=== PATIENT | male | born 1955 | race Caucasian/White ===

== ENCOUNTER 2024-02-13 20:06 | Inpatient (IN) | payer BC, SELFPAY ==
[2024-02-13] VITALS (11 sets, daily range): BP systolic 148–180; BP diastolic 74–110; BMI 36.6
--- NOTE | 2024-02-13 12:05 | ED.GENMED ---
ED Provider Triage
<Payton Fowler PA-C - Last Filed: 02/13/24 16:15>
-
Patient seen by provider in Triage?: Seen in Triage
Attestation: A medical screening examination has been initiated by a qualified medical provider. Based on the assessment performed at this time, it has been determined that an emergent medical condition may exist and the patient has been informed
that further medical evaluation and possible additional diagnostic testing may be needed.
HPI: 68yoM here with lightheadedness x 2 days. BP was high since yesterday. 210 systolic yesterday. Took 4 doses of clonidine 0.3mg this morning. Also having slight chest pain. Denies vertigo.
GENERAL: Alert , in no apparent distress
EYE: No visual abnormalities.
NECK: Trachea midline
ENT: No visible abnormalities.
LUNGS: No acute respiratory distress
NEUROLOGICAL: Alert and oriented
SKIN: Skin intact. No visible changes.
MUSCULOSKELETAL: Moving extremities normally
PSYCH: Normal and appropriate interaction.
This is a medical evaluation conducted in person to initiate diagnostic evaluation and provide initial therapeutics. Please see further documentation by the treating clinician.
Cardiac labs and EKG ordered.
History of Present Illness
<Payton Fowler PA-C - Last Filed: 02/13/24 16:15>
General
Chief Complaint: Fainting Sensation
Time Seen by Provider: 02/13/24 13:10
<AIDA Otoole - Last Filed: 02/13/24 20:56>
General
Source: patient
Exam Limitations: none
Nursing documentation reviewed up to this point in time: agreed with
History of Present Illness
History of Present Illness:
68-year-old male presents to the ER for evaluation of lightheadedness. Patient reports for the past week he has felt intermittently lightheaded not associate with position changes or exertion. He denies any actual headache. He denies any chest
pain shortness of breath nausea vomiting. He did take his blood pressure yesterday it was very high. He does have a history of high blood pressure reports he was on multiple blood pressure medications none of which worked and he is presently being
treated only with clonidine.
He denies any trauma. Denies any vertigo denies any room spinning sensation.
He denies any recent illness fever chills.
Past History
<Payton Fowler PA-C - Last Filed: 02/13/24 16:15>
Past History
ED Past Medical History: HTN and Other (Hepatitis C)
ED Past Surgical History: Other (Surgical resection of adrenal tumor)
Social History
Drug: Former user
Personal:
Review of Systems
<AIDA Otoole - Last Filed: 02/13/24 20:56>
Review of Systems
Allergies reviewed?: Yes
All Other Systems: ROS reviewed and negative except as documented in HPI and ROS
Constitutional: Reports no symptoms; Denies fever, fatigue or chills
EENT: Reports no symptoms
Respiratory: Reports no symptoms
Cardiac: Reports no symptoms
ABD/GI: Reports no symptoms
Musculoskeletal: Reports no symptoms
Skin: Reports no symptoms
Neurological: Reports other (lightheadedness ); Denies headache
Psychiatric: Reports no symptoms
Phy Exam
<AIDA Otoole - Last Filed: 02/13/24 20:56>
General Physical Exam
General Presentation: no apparent distress
General age: appears stated age
General Skin: warm and dry
General Habitus: normal
General Mental: alert
General Hydration: appears well hydrated
Cardiovascular Exam
Cardiovascular Exam: regular rate/rhythm, no murmur and normal peripheral pulses
Pulmonary Exam
Pulmonary Exam: lungs clear and no respiratory distress
Neurological Exam
Neurological Exam: alert, oriented x3, no motor deficits, no sensory deficits and speech normal
NIH Stroke Score
Level of Consciousness: 0 - Alert
LOC questions: 0-Answers both correctly
LOC Commands: 0-Performs both correctly
Best Gaze: 0-Normal
Visual [place]: 0=Normal, no visual loss
Facial palsy: 0=Normal, symmetrical
Motor - Right Arm: 0=No drift 10 seconds
Motor - Left Arm: 0=No drift 10 seconds
Motor - Right Le-No drift 5 seconds
Motor - Left Le-No drift 5 seconds
Limb Ataxia: 0-Absent
Sensation: 0-Normal
Best Language: 0-No aphasia
Dysarthria: 0-Normal
Extinction and Inattention: 0-No abnormality
Total Score:: 0
[place] Coma Scale
Eye Opening: Spontaneous
Verbal Response: Oriented
Motor Response: Obeys Commands
GCS Total Score: 15
Cerebellar
Cerebellar Function: normal finger to nose
Musculoskeletal Exam
Musculoskeletal Exam: full ROM
Skin Exam
Skin Exam: normal color and warm/dry
Psychiatric Exam
Psychiatric Exam: normal mood/affect
Course
<Payton Fowler PA-C - Last Filed: 02/13/24 16:15>
Orders/Labs/Results
Orders:
Orders
02/13/24 12:07
Electrocardiogram (*1) Urgent
Reason for Study: Vertigo / Dizzy
EKG- Treatment ONCE
02/13/24 12:15
Complete Blood Count/With Diff Urgent
Comprehensive Metabolic Panel Urgent
Magnesium Urgent
Comment: TSHR
TSH Reflex To Free T4 Urgent
Comment: MAG & TSH REFLEX ADDED ON BY FLOOR 2PM 02-13-24
Troponin I Urgent
02/13/24 13:59
Add On- LAB Urgent
Tests Added?: magnesium , tsh with reflexive t4
02/13/24 14:11
CT Head W/o Iv Contrast Urgent
Comment:
Reason For Exam: elevated bp lightheaded
02/13/24 15:13
0.9% Sodium Chloride 1000 ml [Nss] 1,000 ml IV BOLUS
02/13/24 16:35
Aspirin Chewable [Low Strength Aspirin] 324 mg PO NOW STA
02/13/24 16:52
CT Head & Neck Angio W/wo IV Urgent
Comment:
Reason For Exam: dizziness quetionable subacute cva
02/13/24 19:33
Admit/Transfer Patient As Directed
Co-Sign Provider:
Level of Care: Inpatient admission
Assign to:: Telemetry
Physician / Group: Tato Zabala
Diagnosis: CVA
Reason for Telemetry: CVA/TIA
Date to Stop Telemetry: 02/16/24
Time to Stop Telemetry: 11:00
Reason for Hospitalization: CVA
Expected length of stay greater than two midnights?: Yes
ELOS- Estimated Length of Stay in days: 3
I certify the patient meets the requirements for IP care: Yes
PRN Pain Medication Management As Directed
May give lesser potent ordered pain med per pt: Yes
preference::
Protocol:: Medication orders for pain may be administered in a
manner that supports deferring to patient preference
when the pt is:
- Requesting an ordered lesser potent pain medication.
Least to most potent pain medications are defined
as: acetaminophen < NSAID < tramadol < opioids
(morphine, oxycodone, hydromorphone).
- Requesting a lesser dose of the same medication IF
ORDERED.
- Requesting a less intrusive route of administration
if both routes are prescribed by the provider (PO <
IV).
02/13/24 19:35
Code Status As Directed
Resuscitation Status: Full Code
02/16/24 11:00
DC Protocol for Telemetry ONCE
Abnormal Lab Results
02/13/24
12:15
MPV 10.5 H fL
(7.4-10.4)
02/13/24 12:15
02/13/24 12:15
Vital Signs
Initial and Last Documented VS:
Initial Vital Signs
Temp Pulse Resp BP Pulse Ox
98.2 F 52 18 172/110 99
02/13/24 12:02 02/13/24 12:02 02/13/24 12:02 02/13/24 12:02 02/13/24 12:02
Last Documented Vital Signs
Temp Pulse Resp BP Pulse Ox
98.2 F 55 12 162/95 97
02/13/24 12:02 02/13/24 19:09 02/13/24 19:09 02/13/24 18:30 02/13/24 19:09
<AIDA Otoole - Last Filed: 02/13/24 20:56>
Orders/Labs/Results
Orders:
Orders
02/13/24 12:07
Electrocardiogram (*1) Urgent
Reason for Study: Vertigo / Dizzy
EKG- Treatment ONCE
02/13/24 12:15
Complete Blood Count/With Diff Urgent
Comprehensive Metabolic Panel Urgent
Magnesium Urgent
Comment: TSHR
TSH Reflex To Free T4 Urgent
Comment: MAG & TSH REFLEX ADDED ON BY FLOOR 2PM 02-13-24
Troponin I Urgent
02/13/24 13:59
Add On- LAB Urgent
Tests Added?: magnesium , tsh with reflexive t4
02/13/24 14:11
CT Head W/o Iv Contrast Urgent
Comment:
Reason For Exam: elevated bp lightheaded
02/13/24 15:13
0.9% Sodium Chloride 1000 ml [Nss] 1,000 ml IV BOLUS
02/13/24 16:35
Aspirin Chewable [Low Strength Aspirin] 324 mg PO NOW STA
02/13/24 16:52
CT Head & Neck Angio W/wo IV Urgent
Comment:
Reason For Exam: dizziness quetionable subacute cva
02/13/24 19:33
Admit/Transfer Patient As Directed
Co-Sign Provider:
Level of Care: Inpatient admission
Assign to:: Telemetry
Physician / Group: Tato Zabala
Diagnosis: CVA
Reason for Telemetry: CVA/TIA
Date to Stop Telemetry: 02/16/24
Time to Stop Telemetry: 11:00
Reason for Hospitalization: CVA
Expected length of stay greater than two midnights?: Yes
ELOS- Estimated Length of Stay in days: 3
I certify the patient meets the requirements for IP care: Yes
PRN Pain Medication Management As Directed
May give lesser potent ordered pain med per pt: Yes
preference::
Protocol:: Medication orders for pain may be administered in a
manner that supports deferring to patient preference
when the pt is:
- Requesting an ordered lesser potent pain medication.
Least to most potent pain medications are defined
as: acetaminophen < NSAID < tramadol < opioids
(morphine, oxycodone, hydromorphone).
- Requesting a lesser dose of the same medication IF
ORDERED.
- Requesting a less intrusive route of administration
if both routes are prescribed by the provider (PO <
IV).
02/13/24 19:35
Code Status As Directed
Resuscitation Status: Full Code
02/16/24 11:00
DC Protocol for Telemetry ONCE
Abnormal Lab Results
02/13/24
12:15
MPV 10.5 H fL
(7.4-10.4)
02/13/24 12:15
02/13/24 12:15
Vital Signs
Initial and Last Documented VS:
Initial Vital Signs
Temp Pulse Resp BP Pulse Ox
98.2 F 52 18 172/110 99
02/13/24 12:02 02/13/24 12:02 02/13/24 12:02 02/13/24 12:02 02/13/24 12:02
Last Documented Vital Signs
Temp Pulse Resp BP Pulse Ox
98.2 F 55 12 162/95 97
02/13/24 12:02 02/13/24 19:09 02/13/24 19:09 02/13/24 18:30 02/13/24 19:09
Piano Instructor consulted with Physician
Piano Instructor consulted with physician?: Yes
Name of Physician Consulted: hatif
<AIDA Otoole - Last Filed: 02/13/24 20:56>
MDM/Problems Addressed
Differential Diagnosis Includes:
Not limited to lightheadedness, arrhythmia, dehydration, anemia
MDM/Problems Addressed:
Patient is a 68-year-old male with history of hypertension presents to the ER for evaluation of lightheadedness for the past week. Patient has no other neurological deficits but feels lightheaded not associate position change. No neurological
deficits on exam CAT scan does show possible subacute CVA in the parietal lobe. Case discussed with neurology recommend CT angio head and neck. Neurology does recommend aspirin. In addition patient denies any chest pain shortness of breath
however he has had frequent PVCs on the monitor. Patient has longstanding history of hypertension has seen several shutdown planner not in this area to manage this in the past but he reports no medicine ever worked and therefore he is only on clonidine.
As discussed with neurology will admit to the hospital service
Chronic conditions affecting care:
htn only treated with clonidine
<AIDA Otoole - Last Filed: 02/13/24 20:56>
*Radiology
Radiology exam reviewed: radiology read reviewed (Report for CT head and CTA head and neck reviewed)
*Pulse Oximetry
Patient hypoxic: no
*EKG
Interpreted by ED Provider?: Yes
Heart Rate: 56
Rate: bradycardiac
Rhythm: sinus and PVC's
*Critical Care Note
Total Time (30-74mins, 75-104mins- exclusive of procedures): Not Applicable
<AIDA Otoole - Last Filed: 02/13/24 20:56>
Patient Management
Discussion with other providers: Checking Department Supervisor (neuro Dr Zac Joiner )
ED Attending Note
<Payton Fowler PA-C - Last Filed: 02/13/24 16:15>
-
Portions of this chart may have been created with voice recognition software.� Occasional wrong word or��sound alike� substitutions may have occurred due to the inherent limitations of voice recognition software.
Discharge Plan
Departure
Patient Disposition: Admit
Date of Disposition: 02/13/24
Time of Disposition: 18:36
Admit to: Telemetry
Admit to doctor: [email or web address]
Presentation/result/management discussed w/ accepting MD/DO: Hospitalist
Patient with high blood pressure during this ER visit?: Yes
Condition: Fair
Covid-19: Not Applicable
Discharge Problem:
Lightheadedness, Possible cva , PAC (premature atrial contraction)
Interventions
Interventions:
*Risk Screen - Suicide Last Done: 02/13/24 12:02
*General Assessment Last Done: 02/13/24 12:02
*Neglect/Abuse Screening Last Done: 02/13/24 12:02
*ED COVID-19 Vaccine History Last Done: 02/13/24 12:02
ED- Neurological Assessment Last Done: 02/13/24 15:00
ED- Cardiac Assessment Last Done: 02/13/24 15:00
[2024-02-13 12:32] LABS: % Basophils 0.5 % (0-2); % Eosinophils 1.5 % (0-6); % Immature Granulocytes 0.3 % (0-0.5); % Lymphocytes 26.7 % (20.5-51.1); % Monocytes 7.5 % (1.7-9.3); % Neutrophils 63.5 % (42.2-75.2); Absolute Eosinophils 0.1 10^3/uL (0-0.7); Absolute Lymphocytes 1.8 10^3/uL (1.2-3.4); Absolute Monocytes 0.5 10^3/uL (0.1-0.6); Absolute Neutrophils 4.2 10^3/uL (1.4-6.5); Hemoglobin 15.5 g/dL (13.0-18.0); Mean Corp Hgb Conc. 34.4 g/dL (33.0-37.0); Mean Corpuscular Volume 84.3 fL (80.0-94.0); Mean Platelet Volume 10.5 fL (7.4-10.4); Nucleated Red Blood Cells % 0 % (-); Platelet Count 204 10^3/uL (130-400); Red Blood Cell Count 5.34 10^6/uL (4.70-6.10); Red Cell Dist. Width 13.2 % (11.5-14.5); White Blood Cell Count 6.6 10^3/uL (4.8-10.8)
[2024-02-13 12:49] LABS: Troponin I < 0.012 ng/ml
[2024-02-13 12:52] LABS: ALT (SGPT) 21 U/L (0-50); AST (SGOT) 25 U/L (17-59); Albumin 4.3 g/dl (3.5-5.0); Alkaline Phosphatase 57 U/L (38-126); Blood Urea Nitrogen 14 mg/dl (9-20); Calcium 9.5 mg/dl (8.4-10.2); Carbon Dioxide 30 mmol/L (22-30); Chloride 103 mmol/L (98-107); Glucose 79 mg/dl (70-99); Potassium 4.6 mmol/L (3.5-5.1); Sodium 142 mmol/L (135-145); Total Bilirubin 0.6 mg/dl (0.2-1.3); eGFR > 60.00
[2024-02-13 15:08] LABS: TSH Reflex To Free T4 2.16 uIU/ml (0.47-4.68)
[2024-02-13] MEDS: NSS 1000 IV (15:58)
[2024-02-13] MEDS: LOW STRENGTH ASPIRIN 324 MG PO (17:01)
--- NOTE | 2024-02-13 19:39 | HPS.HSE ---
Family Physician
-
Family Physician: Kimberly Story
Chief Complaint
-
lightheadedness
History of Present Illness
HPI
68M HTN, Hep C seen at ER for evaluation of lightheadedness.
- onset of intermittently lightheaded not associate with position changes or exertion.
- no headache, no chest pain, no shortness of breath
- HX MDR HTN , currently on h clonidine.
He denies any trauma. Denies any vertigo denies any room spinning sensation.
He denies any recent illness fever chills.
Medical History
Past Medical History
Past Medical History: Reports HTN
Past Surgical History: Reports Other (Surgical resection of adrenal tumor)
Social History
Tobacco: Non-smoker
Alcohol: None
Drug: Former User
Personal:
Family History
Family History: Not pertinent
Allergies / Home Medications
Allergies reflects when Allergies were last updated in [employer].
Home Medications with original date entered in [employer]
Allergy/Medication List:
Allergies
Allergy/AdvReac Type Severity Reaction Status Date / Time
No Known Allergies Allergy Verified 07/29/19 20:39
Home Medications
clonidine HCl 0.3 mg tablet 0.3 mg PO .3-4X DAILY 02/13/24
sildenafil 100 mg tablet 100 mg PO DAILYPRN PRN ed 02/13/24
therapeutic multivitamin 1 tab PO DAILY 02/13/24
Review of Systems
-
Constitutional: Reports No Symptoms
EENT: Reports No Symptoms
Respiratory: Reports No Symptoms
Cardiac: Reports No Symptoms
Abdomen/GI: Reports No Symptoms
: Reports No Symptoms
Musculoskeletal: Reports No Symptoms
Skin: Reports No Symptoms
Neurological: Reports Dizzy (ligheaded )
Endocrine: Reports No Symptoms
Hematologic/Lymphatic: Reports No Symptoms
Psych: Reports No Symptoms
Physical Exam
Vital Signs
Vital Signs
Temp Pulse Resp BP Pulse Ox
98.2 F 55 12 162/95 97
02/13/24 12:02 02/13/24 19:09 02/13/24 19:09 02/13/24 18:30 02/13/24 19:09
Physical Exam
General: Well Developed, Well Nourished and No Apparent Distress
HEENT: NormoCephalic, Moist mucous membranes and Atraumatic
Respiratory: Clear
Cardiac: S1/S2 and Regular Rhythm; No Murmur or Rub
GI: Soft, Non Tender, Non Distended and Normal Bowel Sounds; No Organomegaly
Rectal: Deferred by Provider
Musculoskeletal: No Clubbing, No Cyanosis and No Edema
Skin: No Rash
Neuro: Nonfocal/grossly intact
Laboratory Results
-
02/13/24 12:15
02/13/24 12:15
Laboratory Results
Total Bilirubin 0.6 mg/dl (0.2-1.3) 02/13/24 12:15
AST 25 U/L (17-59) 02/13/24 12:15
ALT 21 U/L (0-50) 02/13/24 12:15
Alkaline Phosphatase 57 U/L (38-126) 02/13/24 12:15
Troponin I < 0.012 ng/ml 02/13/24 12:15
Data Reviewed
-
CT Scan: Report Reviewed by me
Medical Tests (Nuc Med, Echo, EKG etc): Report Reviewed by me
Lab Data: Labs Reviewed by me
Impression/Plan
-
Vital Signs
Temp Pulse Resp BP Pulse Ox
98.2 F 55 12 162/95 97
02/13/24 12:02 02/13/24 19:09 02/13/24 19:09 02/13/24 18:30 02/13/24 19:09
Data
Unremrkable CBC
Unremarkable CMP
NEG TPNI
EKG
SINUS BRADYCARDIA WITH OCCASIONAL PREMATURE VENTRICULAR COMPLEXES
LEFT AXIS DEVIATION
NONSPECIFIC T WAVE ABNORMALITY
ABNORMAL ECG
WHEN COMPARED WITH ECG OF 29-JUL-2019 20:28,
PREMATURE VENTRICULAR COMPLEXES ARE NOW PRESENT
T WAVE INVERSION NOW EVIDENT IN LATERAL LEADS
HCT:
- Subtle focal region of decreased density within the left posterior paramedian parietal lobe, as described. Finding is most suggestive of an area of infarction. This is most likely an old area of infarction, but could conceivably be subacute. If
any previous imaging examination of the head are available, comparison to those exams would be useful.
H & N CTA
- No acute pathology of the head and neck.
- 50-69% right proximal internal carotid artery stenosis.
- Less than 50% left proximal internal carotid artery stenosis.
- Multilevel degenerative disc disease of the cervical spine.
No prior hospitalist admission:
ASSESSMENT & PLAN
Acute CVA with just lightheadedness; Non focal neuro deficit
POS HCT : Subtle focal region of decreased density within the left posterior paramedian parietal lobe
POS H & N CTA: 50-69% right proximal internal carotid artery stenosis.
- start ASA per ER dw Neuro
- start Atorvastatin 40 mg HS
- ECHO
- Lipids and A1C
- Brain MRI
- Neuro consult
- vascular consult
Essential HTN
- c/w Clonidine but hold if SBP <140 DBP <80
DVT Px: SCD
Code: Full code
IP TLM
--- NOTE | 2024-02-13 21:48 | PTCARENOTE ---
Pt arrived from the ED via wheelchair. Pt ambulated into the room. No complaints of pain, light headedness or dizziness. AAOx3, using bathroom independently. Patient oriented to the room. Plan of care discussed. Call buckley is within reach.
[2024-02-13] MEDS: LIPITOR 40 MG PO (22:11)
[2024-02-13] MEDS: CATAPRES 0.3 MG PO (22:11)
[2024-02-14] VITALS (40 sets, daily range): BP systolic 117–197; BP diastolic 64–119; BMI 36.1
--- NOTE | 2024-02-14 04:05 | DOWNTIME ---
There was a [employer] Downtime on 02/14/2024 from 0100 to 02/14/2024 at 0355. Downtime documentation of patient's care, including medication administrations, has been reconciled in the electronic record per guidelines. Refer to the
patient's paper chart under the miscellaneous tab to see printed paper medication records and downtime forms.
[2024-02-14] MEDS: CATAPRES 0.3 MG PO (04:27)
[2024-02-14 08:42] LABS: INR 1.07
[2024-02-14 08:43] LABS: APTT 34.7 Sec (23.4-35.0)
[2024-02-14 08:47] LABS: Hematocrit 44.7 % (39.0-52.0); Hemoglobin 15.6 g/dL (13.0-18.0); Mean Corp Hgb Conc. 34.9 g/dL (33.0-37.0); Mean Corpuscular Hgb 29.1 pg (27.0-31.0); Mean Corpuscular Volume 83.4 fL (80.0-94.0); Mean Platelet Volume 10.8 fL (7.4-10.4); Platelet Count 187 10^3/uL (130-400); Red Blood Cell Count 5.36 10^6/uL (4.70-6.10); Red Cell Dist. Width 13.2 % (11.5-14.5); White Blood Cell Count 6.1 10^3/uL (4.8-10.8)
[2024-02-14] MEDS: LOW STRENGTH ASPIRIN 81 MG PO (08:52)
[2024-02-14 09:01] LABS: Erythrocyte Sed Rate 11 mm/hour (0-20)
[2024-02-14 09:02] LABS: Troponin I < 0.012 ng/ml
[2024-02-14 09:45] LABS: Blood Urea Nitrogen 13 mg/dl (9-20); Calcium 9.4 mg/dl (8.4-10.2); Carbon Dioxide 26 mmol/L (22-30); Chloride 105 mmol/L (98-107); Estimated Creatinine Clearance 123 ml/min; Glucose 93 mg/dl (70-99); HDL Cholesterol 26 mg/dl; LDL Cholesterol, Calculated 135 mg/dl; Potassium 4.5 mmol/L (3.5-5.1); Sodium 141 mmol/L (135-145); Total Cholesterol 191 mg/dl (50-199); Triglyceride 151 mg/dl (10-149); Very Low Density Lipoprotein 30 mg/dl (0-30); eGFR > 60.00
--- NOTE | 2024-02-14 10:11 | CON.NEURO4 ---
Documented by User: Misyt Reaves NP 02/14/24 12:26
Consultation - Neurology 4
-
CONSULTING PHYSICIAN: Zac Joiner MD
REFERRING PHYSICIAN: Hospitalists/AIDA Tejeda
DICTATED BY: AIDA Robin
DATE/TIME OF REQUEST: 02/13/24
DATE/TIME OF CONSULTATION: 02/14/24
Reason for Consultation: Dizziness
History of Present Illness:
This is a 68-year-old right-handed male who has presented to the hospital on 02/13/24 with report of lightheadedness and high blood pressure readings. Patient reports that he was camping over the weekend and felt in his usual state. Two days ago on
02/12/24 he was at work in the morning when he started to feel lightheaded. He also notes that he was working on his computer and noticed a shadow coming and going in his bilateral R delacruz of vision. He checked his blood pressure and reports it was
elevated around 210/100, which he felt was unusual because he typically has a headache when his blood pressure is elevated and he did not have one. That evening he reports feeling better. He then woke up yesterday morning and notes that he once
again felt lightheaded and when he check his bp it was over 200/100 again. He took 4 clonidine with no improvement, then presented to the ER for evaluation. CT head was obtained in the ER and is suggestive of a subacute vs old left parietal infarct.
CTA head/neck was also obtained and is negative for LVO, but demonstrates R ICA 50-69% stenosis. Patient denies any history of TIA, stroke, or vision abnormalities in the past. He notes an extensive history of HTN starting around 2000. He was
diagnosed with an adrenal tumor which he had resected at [facility] in 2005, and notes that his blood pressure improved following surgery. He takes 0.3mg clonidine 3-4 times a day and denies missing any doses. He checks his blood pressure routinely and
notes that until two days ago it was well-controlled. He denies any headache, amaurosis, speech/swallow difficulty, numbness, weakness, nausea, chest pain, palpitations, and shortness of breath. He still endorses a constant light-headed sensation at
rest, that intensifies when he stands/ambulates. He was not taking any blood-thinning medications.
Past Medical History: HTN, hepatitis C, left eye strabismus diagnosed age 8
Surgical History: Surgical resection of adrenal tumor, B/L TKR
Family History: Mother- cavernous malformation, ICH x3.
Social History: Former smoker. Occasional alcohol. 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
Allergies: No known allergies.
Home Medications: See below.
Review of Symptoms:
Patient denies any fever, headache, chest pain, shortness of breath, GI or symptoms.
�Per the HPI.�All systems are reviewed negative except above.
Physical Exam:
The patient is afebrile, abdomen is nondistended, breathing is unlabored, skin is warm and dry, no edema.
NIH Stroke Scale:
I performed the NIH stroke scale on the patient on 02/14/24 at 1030. The patient scored 1 points on the NIH stroke scale assessment, which were assigned as follows: See below.
Neurologic Examination:
The patient is awake, alert and oriented x 3. He is able to follow commands and answer questions appropriately. There is no aphasia or dysarthria. On cranial nerve assessment, pupils are 3 mm bilateral, round and reactive to light and
accommodation. There is a bilateral RLQ field cut. Extraocular movements are intact. Facial sensations are intact and bilaterally symmetrical, there is no facial asymmetry. Hearing is intact bilaterally to normal conversation volume. Tongue palate
and uvula are midline. Sternocleidomastoid strengths are full bilaterally. Motor strengths are 5/5 bilateral upper and lower extremities on [employer] scale. There is no drift or involuntary movement noted. Babinski is absent
bilaterally. Sensation of temperature are moderately reduced in distal BLE. There was no extinction noted on double simultaneous stimulation. Coordination is intact by finger to nose bilaterally.
Lab Results: See below.
Neuro Imaging:
1. CT Head 02/13/24: Subtle focal region of decreased density within the left posterior paramedian parietal lobe, as described. Finding is most suggestive of an area of infarction. This is most likely an old area of infarction, but could conceivably
be subacute. If any previous imaging examination of the head are available, comparison to those exams would be useful.
2. CTA Head/Neck 02/13/24: No acute pathology of the head and neck. 50-69% right proximal internal carotid artery stenosis. Less than 50% left proximal internal carotid artery stenosis. Multilevel degenerative disc disease of the cervical spine.
Differentials for the patient's presentation include:
1. CT head suggestive of a left parietal lobe ischemic infarct, subacute vs chronic. Patient notes R sided visual change starting two days ago, supportive of subacute ischemic stroke.
2. R ICA 50-69% stenosis, appears to be asymptomatic.
Patient has the following risk factors for their symptoms: HTN, HLD
IV Tenecteplase/IAT candidacy: Patient is not a candidate for TNK/IAT due to being outside of time window, stroke already visualized on CT head imaging, no LVO.
Recommendations:
-Continue aspirin 81mg daily indefinitely.
-Slow lowering of blood pressure to goal normotension.
-MRI brain noncontrast pending. Lorazepam 1mg IV x1 on-call for MRI due to severe claustrophobia.
-TTE pending.
-LDL goal <70. LDL is 135. Continue newly initiated atorvastatin 40mg daily.
-Goal normoglycemia, hbA1c is 5.1.
-NIHSS and neurological checks per unit guidelines.
-Provide patient with a stroke education packet.
-PT/OT evaluations.
-DVT prophylaxis.
-Vascular surgery evaluation for R ICA stenosis.
-No driving. Patient needs outpatient visual field testing/clearance by ophthalmology for driving clearance.
-Follow-up with Neurology as an outpatient in 3-4 weeks, may see the [facility]ICE SPECIALIST or one of the physicians.
Discussed patient care with: Dr. Joiner, the patient
Vital Signs and Labs
-
Vital Signs and Labs:
Vital Signs
Temp Pulse Resp BP Pulse Ox
98.4 F 56 18 205/123 96
02/14/24 08:05 02/14/24 08:05 02/14/24 08:05 02/14/24 10:19 02/14/24 08:05
Lab Results
02/14/24 08:19
02/14/24 08:19
PT 14.0 Sec (11.4-14.6) 02/14/24 08:19
INR 1.07 02/14/24 08:19
APTT 34.7 Sec (23.4-35.0) 02/14/24 08:19
Sodium 141 mmol/L (135-145) 02/14/24 08:19
Potassium 4.5 mmol/L (3.5-5.1) 02/14/24 08:19
BUN 13 mg/dl (9-20) 02/14/24 08:19
Glucose 93 mg/dl (70-99) 02/14/24 08:19
Calcium 9.4 mg/dl (8.4-10.2) 02/14/24 08:19
LDL Cholesterol, Calc 135 mg/dl 02/14/24 08:19
Medications
-
Active Medications
Generic Name Dose Route Start Last Admin
Trade Name Freq PRN Reason Stop Dose Admin
Acetaminophen 650 mg 02/13/24 21:42
Acetaminophen 650 Mg Rectal Suppository RECTAL 03/12/24 21:41
Q4HPRN PRN
STEINBERG, mild pain, or temp >100.4F
Acetaminophen 650 mg 02/13/24 21:42
Acetaminophen 325 Mg Tablet PO 03/12/24 21:41
Q4HPRN PRN
STEINBERG, mild pain, or temp >100.4F
Aspirin 81 mg 02/14/24 08:00 02/14/24 08:52
Aspirin 81 Mg Chewable Tablet PO 03/13/24 07:59 81 mg
DAILY KEITH Administration
Atorvastatin Calcium 40 mg 02/13/24 21:42 02/13/24 22:11
Atorvastatin (Lipitor) 40 Mg Tablet PO 03/12/24 21:41 40 mg
QPM KEITH Administration
Clonidine HCl 0.3 mg 02/13/24 22:04 02/14/24 04:27
Clonidine 0.1 Mg Tablet PO 03/12/24 21:41 0.3 mg
Q6HPRN PRN Administration
hypertension
Hydralazine HCl 10 mg 02/14/24 09:23 02/14/24 10:19
Hydralazine 20 Mg/Ml Vial IV 03/13/24 09:22 10 mg
Q6HPRN PRN Administration
SBP>160
Nicardipine/Sodium Chloride 40 mg in 200 mls @ 0 mls/hr 02/14/24 11:30
Cardene IV
PER PROTOCOL KEITH
Protocol
Per Protocol
Sodium Chloride 0 flush 02/13/24 21:00
Sodium Chloride 0.9% (Flush) Syringe IV 03/12/24 20:59
PER PROTOCOL KEITH
Sodium Chloride 0.5 ml 02/14/24 10:42
Nss (Pf) 10 Ml Vial For Ativan 1 Mg Dose IV
PRN PRN
IV LORAZEPAM DILUTION
Home Medications
�Medication �Instructions �Recorded
clonidine HCl 0.3 mg tablet 0.3 mg PO .3-4X DAILY 02/13/24
sildenafil 100 mg tablet 100 mg PO DAILYPRN PRN ed 02/13/24
therapeutic multivitamin 1 tab PO DAILY 02/13/24
NIH Stroke Score
Subsequent NIH Scale
Date of Subsequent NIH Scale: 02/14/24
Time of Subsequent NIH Scale: 10:30
NIH Stroke Score
Level of Consciousness: 0 - Alert
LOC Questions: 0-Answers both correctly
LOC Commands: 0-Performs both correctly
Best Horizontal Gaze: 0-Normal
Visual Delacruz: 1=Partial hemianopia
Facial Palsy: 0=Normal, symmetrical
Motor - Right Arm: 0=No drift 10 seconds
Motor - Left Arm: 0=No drift 10 seconds
Motor - Right Le-No drift 5 seconds
Motor - Left Le-No drift 5 seconds
Limb Ataxia: 0-Absent
Sensation: 0-Normal
Best Language: 0-No aphasia
Dysarthria: 0-Normal
Extinction and Inattention: 0-No abnormality
Total Score:: 1
Modified Toombs (mRS) Score
Modified Toombs Scale (mRS): No significant disability. Able to carry out usual activities.
Score: 1
Alteplase Contraindication
Inclusion and Exclusion criteria reviewed: Yes
Reasons for NON-Tx with Thrombolytics ABSOLUTE Exclusions: Greater than 4.5 hrs from onset of sxs
IAT Contraindications: Imaging doesn't show large vessel occlusion as cause of stroke

Documented by User: Zac Joiner MD 02/14/24 13:28
Consultation - Neurology 4
-
CONSULTING PHYSICIAN: Zac Joiner MD
REFERRING PHYSICIAN: Hospitalists/AIDA Tejeda
DICTATED BY: AIDA Robin
DATE/TIME OF REQUEST: 02/13/24
DATE/TIME OF CONSULTATION: 02/14/24
Reason for Consultation: Dizziness
History of Present Illness:
This is a 68-year-old right-handed male who has presented to the hospital on 02/13/24 with report of lightheadedness and high blood pressure readings. Patient reports that he was camping over the weekend and felt in his usual state. Two days ago on
02/12/24 he was at work in the morning when he started to feel lightheaded. He also notes that he was working on his computer and noticed a shadow coming and going in his bilateral R delacruz of vision. He checked his blood pressure and reports it was
elevated around 210/100, which he felt was unusual because he typically has a headache when his blood pressure is elevated and he did not have one. That evening he reports feeling better. He then woke up yesterday morning and notes that he once
again felt lightheaded and when he check his bp it was over 200/100 again. He took 4 clonidine with no improvement, then presented to the ER for evaluation. CT head was obtained in the ER and is suggestive of a subacute vs old left parietal infarct.
CTA head/neck was also obtained and is negative for LVO, but demonstrates R ICA 50-69% stenosis. Patient denies any history of TIA, stroke, or vision abnormalities in the past. He notes an extensive history of HTN starting around 2000. He was
diagnosed with an adrenal tumor which he had resected at [facility] in 2005, and notes that his blood pressure improved following surgery. He takes 0.3mg clonidine 3-4 times a day and denies missing any doses. He checks his blood pressure routinely and
notes that until two days ago it was well-controlled. He denies any headache, amaurosis, speech/swallow difficulty, numbness, weakness, nausea, chest pain, palpitations, and shortness of breath. He still endorses a constant light-headed sensation at
rest, that intensifies when he stands/ambulates. He was not taking any blood-thinning medications.
Past Medical History: HTN, hepatitis C, left eye strabismus diagnosed age 8
Surgical History: Surgical resection of adrenal tumor, B/L TKR
Family History: Mother- cavernous malformation, ICH x3.
Social History: Former smoker. Occasional alcohol. 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
Allergies: No known allergies.
Home Medications: See below.
Review of Symptoms:
Patient denies any fever, headache, chest pain, shortness of breath, GI or symptoms.
�Per the HPI.�All systems are reviewed negative except above.
Physical Exam:
The patient is afebrile, abdomen is nondistended, breathing is unlabored, skin is warm and dry, no edema.
NIH Stroke Scale:
I performed the NIH stroke scale on the patient on 02/14/24 at 1030. The patient scored 1 points on the NIH stroke scale assessment, which were assigned as follows: See below.
Neurologic Examination:
The patient is awake, alert and oriented x 3. He is able to follow commands and answer questions appropriately. There is no aphasia or dysarthria. On cranial nerve assessment, pupils are 3 mm bilateral, round and reactive to light and
accommodation. There is a bilateral RLQ field cut. Extraocular movements are intact. Facial sensations are intact and bilaterally symmetrical, there is no facial asymmetry. Hearing is intact bilaterally to normal conversation volume. Tongue palate
and uvula are midline. Sternocleidomastoid strengths are full bilaterally. Motor strengths are 5/5 bilateral upper and lower extremities on [employer] scale. There is no drift or involuntary movement noted. Babinski is absent
bilaterally. Sensation of temperature are moderately reduced in distal BLE. There was no extinction noted on double simultaneous stimulation. Coordination is intact by finger to nose bilaterally.
Lab Results: See below.
Neuro Imaging:
1. CT Head 02/13/24: Subtle focal region of decreased density within the left posterior paramedian parietal lobe, as described. Finding is most suggestive of an area of infarction. This is most likely an old area of infarction, but could conceivably
be subacute. If any previous imaging examination of the head are available, comparison to those exams would be useful.
2. CTA Head/Neck 02/13/24: No acute pathology of the head and neck. 50-69% right proximal internal carotid artery stenosis. Less than 50% left proximal internal carotid artery stenosis. Multilevel degenerative disc disease of the cervical spine.
Differentials for the patient's presentation include:
1. CT head suggestive of a left parietal lobe ischemic infarct, subacute vs chronic. Patient notes R sided visual change starting two days ago, supportive of subacute ischemic stroke.
2. R ICA 50-69% stenosis, appears to be asymptomatic.
Patient has the following risk factors for their symptoms: HTN, HLD
IV Tenecteplase/IAT candidacy: Patient is not a candidate for TNK/IAT due to being outside of time window, stroke already visualized on CT head imaging, no LVO.
Recommendations:
-Continue aspirin 81mg daily indefinitely.
-Slow lowering of blood pressure to goal normotension.
-MRI brain noncontrast pending. Lorazepam 1mg IV x1 on-call for MRI due to severe claustrophobia.
-TTE pending.
-LDL goal <70. LDL is 135. Continue newly initiated atorvastatin 40mg daily.
-Goal normoglycemia, hbA1c is 5.1.
-NIHSS and neurological checks per unit guidelines.
-Provide patient with a stroke education packet.
-PT/OT evaluations.
-DVT prophylaxis.
-Vascular surgery evaluation for R ICA stenosis.
-No driving. Patient needs outpatient visual field testing/clearance by ophthalmology for driving clearance.
-Follow-up with Neurology as an outpatient in 3-4 weeks, may see the [facility] SERVICE SPECIALIST or one of the physicians.
Discussed patient care with: Dr. Joiner, the patient
Neurology Attending Note:
CC: Dizziness with blurred vision(R)
HPI: 68-year-old right-handed male with h/o HTN who had been in his [place] till MondayFeb 11 when he started getting lightheaded with blurred vision while using his computer. He checked his BP and it was elevated: 210/100. he took his evening BP
medication Clonidine 0.3. He did not have a headache that he usually get when his BP is elevated. Later that evening he felt better. He then woke up Monday morning and notes that he once again felt lightheaded and when he check his bp it was over
200/100 again. He took 4 clonidine with no improvement, then presented to the ER for evaluation. BP was elevated 200/100
CT head revealed subacute vs old left parietal occipital infarct. CTA head/neck was also obtained and was negative for LVO, but demonstrates R ICA 50-69% stenosis(unrelated).
Patient denies any history of TIA, stroke, or vision abnormalities in the past. He had an eye exam in Spring which was WNL
He notes an extensive history of HTN starting around 2000. He was diagnosed with an adrenal tumor that was resected at [facility] in 2005
Following admission symptoms have resolved. However BP is elevated this morning at 220/110. Pat was given hydralazine 10mg IV
Informed Dr Napier who ordered IV Nicardipine and pat to be transferred to ICU
O/E: VS BP 205/123
Neuro: A,A, Ox3. Speech fluent. CN exam: Right upper quadrantanopsia. No facial asymmetry.
Motor : Normal tone and strength. Sensory Intact. Reflexes + Gait WNL
A/P: Left parietoccipital infarction with Right hemianopsia. Hypertensive crisis
PLAN: Aspirin 81 mg
MRI head when BP controlled
IV Nicardipine
Lipitor 40
Ophthalmology eval OP
ICU monitoring
NIH Stroke Score
NIH Stroke Score
Total Score:: 1
Modified Veda (mRS) Score
Score: 1
[2024-02-14] MEDS: APRESOLINE 10 MG IV (10:19)
[2024-02-14 10:44] LABS: Glycohemoglobin (HgbA1c) 5.1 % (4.0-5.6)
--- NOTE | 2024-02-14 11:20 | PTOTSP ---
Speech Therapy Evaluation
Pt's oropharyngeal swallow within functional limits. No overt s/sx of aspiration with thins via straw or regular solids. RN reported no difficulty with liquids, pills, or meals.
Recommend:
1. IDDSI Level 7 (regular) solids and thin liquids
2. Medications as tolerated
3. Standard aspiration precautions
4. No further ST indicated.
--- NOTE | 2024-02-14 11:28 | W.PN.HOSP.TC ---
Today's Communication/Plan
-
Stroke workup
Hypertensive emergency management
Total Critical Care Time__55___ minutes. I was immediately available to the patient and staff. I personally examined, reviewed labs, diagnostic images/reports, interpretations, treatment plans, discussed patient care with other providers and
family or caregivers (if patient is unable to make decisions), entered orders as appropriate and documented the medical record.
Assessment / Plan
Assessment / Plan
Impression:
Presentation with lightheadedness.
Acute versus subacute left parietal CVA.
Asymptomatic right ICA 50 to 69% stenosis
Hypertensive emergency
Obesity with BMI of 36
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
Remote history of IVDA/heroin and 20s
Plan:
Concern for evolving acute versus subacute left parietal CVA
Presents with lightheadedness
Neuroexam with no focal findings.
CT head Subtle focal region of decreased density within the left posterior paramedian parietal lobe, as described. Finding is most suggestive of an area of infarction. This is most likely an old area of infarction, but could conceivably be subacute.
CTA No acute pathology of the head and neck.
50-69% right proximal internal carotid artery stenosis.
Less than 50% left proximal internal carotid artery stenosis
Continue neurochecks
Aggressive BP control see below.
MRI of the brain
Neurology consultation baseline aspirin pain
LDL 135, initiated on statin
Hemoglobin A1c
Echocardiogram
Hypertensive emergency in the settings of acute/subacute CVA. BP 205/123
Denies chest pain
Normal renal function
ECG sinus bradycardia
Transition to ICU care
Initiate nicardipine drip
Hold clonidine
Additional workup for malignant hypertension including:
Renal sonogram with RA Doppler.
UA.
Urine VMA, ARR, renin activity
ECHO
Urine drug screen
Nephrology consultation
Anticipated Discharge: 24 - 48 hours
Subjective/Interval History
-
Date of Service: February 14, 2024
Objective Data
-
Labs:
Laboratory Results
02/14/24
08:19
WBC 6.1
Hgb 15.6
Hct 44.7
Plt Count 187
PT 14.0
INR 1.07
APTT 34.7
Sodium 141
Potassium 4.5
Chloride 105
Carbon Dioxide 26
BUN 13
Creatinine 0.8
Glucose 93
Calcium 9.4
Vital Signs:
Vital Signs
Temp Pulse Resp BP Pulse Ox
98.4 F 56 18 205/123 96
02/14/24 08:05 02/14/24 08:05 02/14/24 08:05 02/14/24 10:19 02/14/24 08:05
I&O
02/13/24 02/14/24 02/15/24
06:59 06:59 06:59
Intake Total 480 / 480
Balance 480 / 480
Physical Exam
-
General: Well Developed and No Apparent Distress
HEENT: Normocephalic, Atraumatic and Moist Mucous Membranes
Respiratory: Clear to Auscultation
Cardiac: Regular Rhythm and S1/S2; Negative Murmur, Rub or Gallop
GI: Soft, Nontender, Nondistended and Normal Bowel Sounds; Negative Organomegaly
Rectal: Deferred by Provider
Musculoskeletal: No Clubbing, No Cyanosis and No Edema
Skin: Negative Rash
Neuro: Awake, Alert, Oriented, AO x 3 and Nonfocal/Grossly Intact
[2024-02-14] MEDS: ATIVAN 1 MG IV (11:46)
[2024-02-14] MEDS: NSS (PRESERVATIVE FREE) 0.5 ML IV (11:47)
--- NOTE | 2024-02-14 12:21 | W.CON.NEPH ---
Consultation
-
Date/Time Consultation Requested: 02/14/2024 11am
Date/Time Consultation Performed: 02/14/2024 noon
Requesting Provider: Dr. Napier
Performing Provider: Dr. Simmons
Reason for Consultation: Hypertensive urgency
Medical History
-
Chief Complaint: Lightheadedness
History of Present Illness:
This is a 68-year-old gentleman with longstanding history of hypertension for at least 20 years time. In the past he was found to have hyperaldosteronism and had a right adrenaloma removed. This had apparently corrected his high blood pressure
though a few years later his blood pressure began to rise and he started on multiple medications none of which he says were particularly effective. He ultimately ended up on clonidine and over time the dose of clonidine had increased. In the last
year and has had increased more to the point where he was taking 0.3 mg 3 or 4 times a day. In the last week he had been on a camping trip and developed some lightheadedness. He had checked his blood pressure on the return home and found it was
quite high. He had taken some clonidine with some effect though it was high again the next morning with lightheadedness and the clonidine seem to be working less effectively. He had then come to the emergency room. He was found to be
significantly hypertensive with systolic blood pressure greater than 200. Imaging studies suggested. A left parietal lobe ischemic infarct. We are asked to assist with management of the hypertension. [facility]
Past Medical History
Hypertension
Right adrenal adenoma resection
Hyperaldosteronism
Stroke
Left eye strabismus diagnosed at age 8
Bilateral knee replacements
Social History
Tobacco: Former Smoker
Alcohol: Occasional
Family History
Family History: Other (Mother cavernous AVM, stroke, ICH x 3)
Allergies / Home Medications
Allergy/AdvReac Type Severity Reaction Status Date / Time
No Known Allergies Allergy Verified 07/29/19 20:39
�Medication �Instructions �Recorded �Confirmed �Type
clonidine HCl 0.3 mg tablet 0.3 mg PO .3-4X DAILY 02/13/24 02/13/24 History
sildenafil 100 mg tablet 100 mg PO DAILYPRN PRN ed 02/13/24 02/13/24 History
therapeutic multivitamin 1 tab PO DAILY 02/13/24 02/13/24 History
Review of Systems
-
Currently no lightheadedness. No chest pain or shortness of breath
All other systems: Negative unless noted
Physical Exam
Vital Signs
Vital Signs
Temp Pulse Resp BP Pulse Ox
97.9 F 66 18 197/119 98
02/14/24 11:32 02/14/24 11:32 02/14/24 11:32 02/14/24 11:32 02/14/24 11:32
Lab Results
WBC 6.1 10^3/uL (4.8-10.8) 02/14/24 08:19
RBC 5.36 10^6/uL (4.70-6.10) 02/14/24 08:19
Hgb 15.6 g/dL (13.0-18.0) 02/14/24 08:19
Hct 44.7 % (39.0-52.0) 02/14/24 08:19
Plt Count 187 10^3/uL (130-400) 02/14/24 08:19
Sodium 141 mmol/L (135-145) 02/14/24 08:19
Potassium 4.5 mmol/L (3.5-5.1) 02/14/24 08:19
Chloride 105 mmol/L (98-107) 02/14/24 08:19
Carbon Dioxide 26 mmol/L (22-30) 02/14/24 08:19
BUN 13 mg/dl (9-20) 02/14/24 08:19
Creatinine 0.8 mg/dL (0.7-1.3) 02/14/24 08:19
eGFR > 60.00 10/16/24 08:19
Glucose 93 mg/dl (70-99) 02/14/24 08:19
Calcium 9.4 mg/dl (8.4-10.2) 02/14/24 08:19
Albumin 4.3 g/dl (3.5-5.0) 02/13/24 12:15
Laboratory Tests
07/29/19
21:26
Potassium 4.7
Physical Exam
Patient is awake alert oriented and in no distress. Mood and affect were pleasant, insight and judgment were good. Pupils are equal round and reactive to light, extraocular movements are intact, sclera were anicteric. Hearing was normal, ears and
nose are intact. Oropharynx was clear. Neck was supple with trachea midline and no thyromegaly. Heart was regular rate and rhythm without rubs. Lower extremities without edema. Lungs were clear to auscultation bilaterally and with normal
excursion. Abdomen was soft, nontender, with normal active bowel sounds, and no hepatosplenomegaly. Skin was without rash and with normal turgor. No abdominal bruit
Data Reviewed
-
CT Scan: Report Reviewed by me (CT head on 02/13/2024 shows left posterior paramedian parietal lobe stroke) and Other (CTA head and neck on 02/13/2024 shows less than 50% left proximal internal carotid artery stenosis, 50 to 69% right proximal
internal artery carotid artery stenosis)
Medical Tests (Nuc Med, Echo etc): Image Personally Visualized and interpreted (EKG on 02/13/2024 by my read shows sinus bradycardia PVCs left axis deviation nonspecific T wave abnormality)
Labs: Labs Reviewed by me
Old Records: Reviewed
Assessment/Plan
-
Assessment
Hypertensive emergency
Left parietal stroke
Lightheadedness
Obesity
Plan
Secondary workup will be ordered for hypertension
Cardene drip
Labetalol 200 mg twice daily
Hydralazine as needed intravenous
Await MRI brain
Follow BMP
Low-salt diet low caloric diet
Discussed with patient and family
--- NOTE | 2024-02-14 12:21 | CON.INTV ---
Consultation
Consultation Request
Date/Time Consultation Requested: 02/14/2024-12:30 PM
Date/Time Consultation Performed: 02/14/2024-12:30 PM
Requesting Provider: Hospitalist
Performing Provider: Dr. Story
Reason for Consultation: Hypertensive urgency/CVA/critical care management
Medical History
-
Chief Complaint: CVA
History of Present Illness:
68-year-old male with history of hypertension, adrenal tumor resection, hepatitis C presented with lightheadedness and felt to have hypertensive emergency in addition to CVA and transferred to ICU-dragger consulted for hypertensive
emergency/CVA/critical care management 02/14/2024. Currently he denies any chest pain, shortness of breath, productive cough, pleurisy, abdominal pain, focal weakness, dysphagia, and only complains of a visual field defect on the right side
laterally. He does not have any swallowing difficulties, numbness or weakness and denies any lower extremity swelling. His major complaint was lightheadedness.
Past Medical History
Past Medical History: None ( Hypertension. Adrenal tumor resection. Hepatitis C. Left eye strabismus diagnosed 6 years ago. Bilateral total knee replacement.)
Social History
Tobacco: Former Smoker
Alcohol: Occasional
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
Personal:
Living: With Family
Occupational Exposures: No known asbestos exposure
Environmental Exposures: No known tuberculosis exposure
Family History
Family History: Reviewed & Not Pertinent and Other (Mother-cavernous malformation and intracranial hemorrhage x 3.)
Allergies / Home Medications
Allergies
Allergy/AdvReac Type Severity Reaction Status Date / Time
No Known Allergies Allergy Verified 07/29/19 20:39
Home Medications
�Medication �Instructions �Recorded �Confirmed �Last Taken �Type
clonidine HCl 0.3 mg tablet 0.3 mg PO .3-4X DAILY 02/13/24 02/13/24 02/13/24 History
sildenafil 100 mg tablet 100 mg PO DAILYPRN PRN ed 02/13/24 02/13/24 Unknown History
therapeutic multivitamin 1 tab PO DAILY 02/13/24 02/13/24 02/13/24 History
Review of Systems
-
Unable to Obtain full review of systems at this time due to: Other (Per HPI)
Vitals / Labs / Diagnostic Testing
Vital Signs
Temp Pulse Resp BP Pulse Ox
97.9 F 66 18 197/119 98
02/14/24 11:32 02/14/24 11:32 02/14/24 11:32 02/14/24 11:32 02/14/24 11:32
Lab Data
02/14/24 08:19
02/14/24 08:19
Laboratory Results
02/14/24
08:19
PT 14.0
INR 1.07
APTT 34.7
Diagnostic Testing:
Physical Exam
-
Exam:
Well-nourished and well-developed in no apparent distress
HEENT-atraumatic, normocephalic
Neck-supple, no JVD, no bruit
Heart-regular rate and rhythm-no murmurs, rubs or gallops
Chest-clear to auscultation, no wheezes, crackles
Back-no tenderness
Abdomen-soft, nontender, nondistended, no hepatosplenomegaly
Extremities-no cyanosis, clubbing, edema and good peripheral pulses
Integument-intact, no rashes, lesions or ecchymosis
Neurology-alert and oriented, nonfocal motor and sensory exam
Assessment
-
68-year-old male with history of hypertension, adrenal tumor resection, hepatitis C presented with lightheadedness and felt to have hypertensive emergency in addition to CVA and transferred to ICU-dragger consulted for hypertensive
emergency/CVA/critical care management 02/14/2024.
Acute/subacute left parietal-occipital lobe CVA
Hypertensive emergency
Lightheadedness
JOSE suspected
Conditions present prior to admission:
Hypertension.
Adrenal tumor resection.
Hepatitis C.
Left eye strabismus diagnosed 6 years ago.
Obesity-BMI 36
Bilateral total knee replacement.
Plan
Admit patient to medical intensive care unit
Supplemental oxygen to maintain saturation greater than 92%
Aspiration precautions
Monitor blood pressure closely
Monitor for end organ effect of severe hypertension
Hydralazine as needed
Labetalol as needed
Begin nicardipine drip
Nitroprusside less attractive with potential for cyanide toxicity especially with renal insufficiency
Nitroglycerin if cardiac issues
Nephrology consultation pending
Consider workup of secondary causes including renal vascular/primary hyperaldosteronism/Johanna's/pheochromocytoma/etc.
Neurology evaluation ongoing
Monitor blood pressure closely-goal SBP < 180, DBP < 105
Neuro checks per protocol-NIHSS
CT head and CTA head and neck angiogram summarized below
Brain MRI 02/14/2024-pending
Continue aspirin 81 mg indefinitely
Not a candidate for TNK/IAT due to being outside time window, stroke already visualized on CT imaging
Slowly lowering blood pressure to goal normotension
Check echocardiogram
LDL goal less than 70
Vascular surgery evaluation for right ICA stenosis
Atorvostatin 80 mg daily if tolerated
Monitor blood sugar-insulin as needed-goal blood sugar 140-180
DVT prophylaxis-sequential for 24 hours and then Lovenox
Stroke education packet
Speech therapy/occupational therapy/physical therapy evaluation
No driving-patient needs outpatient visual field testing/clearance by ophthalmology for driving clearance
Outpatient sleep disorders evaluation-denies significant snoring and is not somnolent, however, is difficult to control hypertension, stroke, thick neck, Etc.-associations with untreated sleep apnea were reviewed-will arrange for outpatient
follow-up with probable home sleep study and treatment if necessary
Critical care statement: A total of 55 minutes of critical care time was provided for this patient today. This includes management of unstable vital signs, evaluation of the patient at bedside, reviewing the patient's pertinent medical records
including radiographs, microbiology, laboratory evaluations, and discussion with primary team, consultants, pharmacy, nutrition, physical therapy, case management, charge nurse, critical care nursing, and respiratory therapy.
Diagnostic data:
Chest x-ray 07/29/2019-NAD
CT Head 02/13/24: Subtle focal region of decreased density within the left posterior paramedian parietal lobe, as described. Finding is most suggestive of an area of infarction. This is most likely an old area of infarction, but could conceivably be
subacute. If any previous imaging examination of the head are available, comparison to those exams would be useful.
CTA Head/Neck 02/13/24: No acute pathology of the head and neck. 50-69% right proximal internal carotid artery stenosis. Less than 50% left proximal internal carotid artery stenosis. Multilevel degenerative disc disease of the cervical spine.
Brain MRI 02/14/2024-acute/subacute infarcts of the left posterior cerebral artery circulation with some suspected mild petechial hemorrhage, restricted diffusion at the paramedial left parieto-occipital junction measuring 3.6 cm, smaller foci of
restricted diffusion further inferiorly in the left occipital lobe compatible with acute or subacute infarcts of the left posterior cerebral artery distribution
Data Reviewed
-
EKG: Report reviewed by me
Radiology: Image personally visualized and interpreted and Report reviewed by me
CT Scan: Image personally visualized and interpreted and Report reviewed by me
MRI: Report reviewed by me
Labs: Labs reviewed by me
Old Records: Reviewed
Critical Care Time (in minutes): 55
[2024-02-14 13:15] LABS: Urine Albumin Negative (Neg - Trace); Urine Bilirubin Negative (Negative); Urine Character Clear (Clear); Urine Color Yellow; Urine Glucose Negative (Negative); Urine Ketone Negative (Negative); Urine Leukocyte Negative (Negative); Urine Nitrite Negative (Negative); Urine Occult Blood Negative (Negative); Urine Specific Gravity 1.015 (<1.030); Urine Urobilinogen Negative (Neg - 1+)
[2024-02-14] MEDS: TRANDATE 200 MG PO ×2 (13:19→20:26)
[2024-02-14 13:34] LABS: Amphetamines Negative (Negative); Barbiturates Negative (Negative); Benzodiazepines Negative (Negative); Buprenorphine Negative (Negative); Cocaine Negative (Negative); Marijuana Negative (Negative); Methadone Negative (Negative); Methamphetamines Negative (Negative); Opiates Negative (Negative); Phencyclidine Negative (Negative); Tricyclic Antidepressants Negative (Negative)
[2024-02-14] MEDS: CARDENE 200 IV ×2 (15:10→20:36)
--- NOTE | 2024-02-14 15:11 | PTCARENOTE ---
Pt tfr'd to ICU for Cardene gtt, gave report to Cristóbal RN. Pt went to ICU on a stretcher with RN and transport without incident. Pt taken to room 337
--- NOTE | 2024-02-14 15:14 | PTCARENOTE ---
Pt arrived from telemetry floor to ICU. Pt stood and pivoted to unit bed. AAOx3. Denying pain. NIHSS 1 for partial hemianopia; pt states visual deficit in right lower visual field. Sinus rhythm with PACs and PVCs on youth nutritional monitor. No edema.
Initial BP 184/96. Cardene gtt started at 5 mg/hr. Follow up BP 157/96. SaO2 97% on room air. Lungs clear to auscultation. Pt states appetite. Bowel sounds present. Pt agreeable to using urinal while titrating Cardene for blood pressure.
[2024-02-14 15:20] LABS: Folate > 20.0 ng/ml (2.76-20); Vitamin B12 664 pg/ml (239-931)
[2024-02-14] MEDS: LIPITOR 40 MG PO (17:05)
--- NOTE | 2024-02-14 20:00 | PTCARENOTE ---
Resumed care of pt this evening. Received pt on cardene gtt infusing at 7.5 mg/hr via left peripheral IV site. NIHSS 1 for partial hemianopia, rt lower visual field. Pt is A&Ox3, can move all 4 extremities, and can make needs known. Pt is SR w/ PVCs
on tele monitor, has no edema, and palpable pedal pulses. Pt tolerating current diet, has a round/obese abdomen w/ active BS, and consumed 100% of dinner. Pt able to void w/ urinal. Skin is C/D/I.
[2024-02-14] MEDS: TYLENOL 650 MG PO (20:24)
--- NOTE | 2024-02-14 23:00 | PTCARENOTE ---
Cardene gtt turned off at 2250.
[2024-02-15] VITALS (63 sets, daily range): BP systolic 121–201; BP diastolic 79–136; PULSE 93–102; BMI 35.8
[2024-02-15] MEDS: TYLENOL 650 MG PO ×3 (02:31→22:29)
--- NOTE | 2024-02-15 03:45 | PTCARENOTE ---
Pt c/o frontal headache rated 5 out of 10 on pain scale. PRN Tylenol administered by this RN. Upon reassessment pt was resting comfortably.
[2024-02-15 07:14] LABS: Blood Urea Nitrogen 16 mg/dl (9-20); Calcium 9.9 mg/dl (8.4-10.2); Carbon Dioxide 27 mmol/L (22-30); Chloride 103 mmol/L (98-107); Estimated Creatinine Clearance 108 ml/min; Glucose 91 mg/dl (70-99); Potassium 4.3 mmol/L (3.5-5.1); Sodium 142 mmol/L (135-145); eGFR > 60.00
[2024-02-15 07:17] LABS: Hematocrit 46.3 % (39.0-52.0); Hemoglobin 16.1 g/dL (13.0-18.0); Mean Corp Hgb Conc. 34.8 g/dL (33.0-37.0); Mean Corpuscular Volume 83.4 fL (80.0-94.0); Mean Platelet Volume 10.5 fL (7.4-10.4); Platelet Count 212 10^3/uL (130-400); Red Blood Cell Count 5.55 10^6/uL (4.70-6.10); Red Cell Dist. Width 13.3 % (11.5-14.5); White Blood Cell Count 7.6 10^3/uL (4.8-10.8)
--- NOTE | 2024-02-15 07:29 | W.PN.INTV ---
Today's Communication / Plan
Recommendations
Wean Cardene
Oral antihypertensives intensified
Outpatient sleep apnea workup
Secondary causes of hypertension workup underway
If able to be weaned off Cardene then transfer out of ICU-call pulmonary if respiratory issues arise
Assessment
-
68-year-old male with history of hypertension, adrenal tumor resection, hepatitis C presented with lightheadedness and felt to have hypertensive emergency in addition to CVA and transferred to ICU-social media content specialist consulted for hypertensive
emergency/CVA/critical care management 02/14/2024.
Acute/subacute left parietal-occipital lobe CVA
Hypertensive emergency
Lightheadedness
JOSE suspected
Conditions present prior to admission:
Hypertension.
Adrenal tumor resection.
Hepatitis C.
Left eye strabismus diagnosed 6 years ago.
Obesity-BMI 36
Bilateral total knee replacement.
Plan
Critically ill on Cardene for significant hypertension and subacute CVA
Supplemental oxygen to maintain saturation greater than 92%
Aspiration precautions
Monitor blood pressure closely
Monitor for end organ effect of severe hypertension
Hydralazine as needed
Labetalol as needed
Continue nicardipine-attempt to wean off
Nephrology consultation noted-correspondence reviewed
Labetalol 200 mg orally 3 times daily
Nifedipine extended release added
Could restart clonidine
Hydralazine as needed
Secondary causes including renal vascular/primary hyperaldosteronism/[place]'s/pheochromocytoma/etc.-pending
Neurology evaluation ongoing
Monitor blood pressure closely-goal SBP < 180, DBP < 105
Neuro checks per protocol-NIHSS
CT head and CTA head and neck angiogram summarized below
Brain MRI 02/14/2024-pending
Continue aspirin 81 mg indefinitely
Not a candidate for TNK/IAT due to being outside time window, stroke already visualized on CT imaging
Slowly lowering blood pressure to goal normotension
Echocardiogram 02/14/2024-EF 55-60%, no significant valvular disease
LDL goal less than 70
Atorvastatin
Vascular surgery evaluation for right ICA stenosis
Monitor blood sugar-insulin as needed-goal blood sugar 140-180
DVT prophylaxis-sequential for 24 hours-holding as potential petechial hemorrhages-begin Lovenox if neurology is okay with it
Stroke education packet
Speech therapy/occupational therapy/physical therapy evaluation
No driving-patient needs outpatient visual field testing/clearance by ophthalmology for driving clearance
If able to be weaned off Cardene then transfer out of ICU-call pulmonary if respiratory issues arise
Outpatient sleep disorders evaluation-denies significant snoring and is not somnolent, however, is difficult to control hypertension, stroke, thick neck, Etc.-associations with untreated sleep apnea were reviewed-will arrange for outpatient
follow-up with probable home sleep study and treatment if necessary
Critical care statement: A total of 40 minutes of critical care time was provided for this patient today. This includes management of unstable vital signs, evaluation of the patient at bedside, reviewing the patient's pertinent medical records
including radiographs, microbiology, laboratory evaluations, and discussion with primary team, consultants, pharmacy, nutrition, physical therapy, case management, charge nurse, critical care nursing, and respiratory therapy.
Diagnostic data:
Chest x-ray 07/29/2019-NAD
CT Head 02/13/24: Subtle focal region of decreased density within the left posterior paramedian parietal lobe, as described. Finding is most suggestive of an area of infarction. This is most likely an old area of infarction, but could conceivably be
subacute. If any previous imaging examination of the head are available, comparison to those exams would be useful.
CTA Head/Neck 02/13/24: No acute pathology of the head and neck. 50-69% right proximal internal carotid artery stenosis. Less than 50% left proximal internal carotid artery stenosis. Multilevel degenerative disc disease of the cervical spine.
Brain MRI 02/14/2024-acute/subacute infarcts of the left posterior cerebral artery circulation with some suspected mild petechial hemorrhage, restricted diffusion at the paramedial left parieto-occipital junction measuring 3.6 cm, smaller foci of
restricted diffusion further inferiorly in the left occipital lobe compatible with acute or subacute infarcts of the left posterior cerebral artery distribution
Subjective Dataa
Subjective Data
Date of Service:
Date of Service: February 15, 2024
Chief Complaint: [place] Follow Up and Pulmonary Follow Up
Subjective:
Initially weaned off Cardene and then back on it and now off again, no new complaints, still has visual field cut, no new headaches, and denies shortness of breath, chest pain, abdominal pain or focal weakness
Review of Systems
General: Other (Per HPI)
Objective Data
Data Reviewed
Vital Signs / I&O / Oxygen:
Vital Signs
Temp Pulse Resp BP Pulse Ox
97.6 F 72 15 180/108 96
02/15/24 03:49 02/15/24 07:18 02/15/24 07:18 02/15/24 07:00 02/15/24 07:18
Intake and Output
02/14/24 02/15/24 02/16/24
06:59 06:59 06:59
Intake Total 480 / 480 566 / 566
Output Total 2100 / 2100
Balance 480 / 480 -1534 / -1534
SaO2 96
Physical Exam
General: Respiratory Distress (n) and Comfortable
HEENT: Normocephalic, Anicteric and Moist Mucous Membranes
Cardiovascular: Regular Rhythm
Respiratory: Crackles (n), Rhonchi (n), Non-Labored Respirations, Accessory Resp Muscle Use (n) and Stridor (n)
GI: Soft, Non Distended and Non Tender
Neurology: Awake, Alert and No Motor Deficits
Skin: Warm, Good Color, Cyanosis (n), Jaundice (n) and Rash (n)
Labs/Micro/Reports
Lab Data
02/15/24 06:30
02/15/24 06:30
Laboratory Results
02/14/24
08:19
PT 14.0
INR 1.07
APTT 34.7
[2024-02-15] MEDS: TRANDATE 200 MG PO ×3 (07:44→22:29)
--- NOTE | 2024-02-15 08:10 | PTCARENOTE ---
Received patient from mail carrier and clerk. Patient oriented AAOX3. NIHSS completed at bedside, no changes from prior shift. Scale is 1 for visual field cut. He is on room air, lungs clear. Patient is on cardene gtt at 5. SBP 168. oral trandate given.
Patient is on cholesterol lowering diet, using urinal in bed. will clarify activity orders. Orders reviewed.
[2024-02-15] MEDS: LOW STRENGTH ASPIRIN 81 MG PO (09:20)
--- NOTE | 2024-02-15 09:28 | W.PN.NEPH.PH ---
Today's Communication / Plan
-
nifedipine
Assessment/Plan
-
Assessment
Hypertensive emergency
Left parietal stroke
Lightheadedness
Obesity
Plan
Secondary workup pending
Cardene drip
Labetalol 200 mg TID
add nifedipine ER
could restart clonidine as well if needed
Hydralazine as needed intravenous
Follow BMP
Low-salt diet low caloric diet
-
-
Date of Service: February 15, 2024
CC / HPI / ROS
-
Chief Complaint:
HTN
History of Present Illness:
BP high but better
on cardene gtt
Cr at baseline
on ASA for recent CVA
Review of Systems:
no CP/SOB
Labs
-
Labs:
WBC 7.6 10^3/uL (4.8-10.8) 02/15/24 06:30
RBC 5.55 10^6/uL (4.70-6.10) 02/15/24 06:30
Hgb 16.1 g/dL (13.0-18.0) 02/15/24 06:30
Hct 46.3 % (39.0-52.0) 02/15/24 06:30
Plt Count 212 10^3/uL (130-400) 02/15/24 06:30
Sodium 142 mmol/L (135-145) 02/15/24 06:30
Potassium 4.3 mmol/L (3.5-5.1) 02/15/24 06:30
Chloride 103 mmol/L (98-107) 02/15/24 06:30
Carbon Dioxide 27 mmol/L (22-30) 02/15/24 06:30
BUN 16 mg/dl (9-20) 02/15/24 06:30
Creatinine 0.9 mg/dL (0.7-1.3) 02/15/24 06:30
eGFR > 60.00 02/15/24 06:30
Glucose 91 mg/dl (70-99) 02/15/24 06:30
Calcium 9.9 mg/dl (8.4-10.2) 02/15/24 06:30
Albumin 4.3 g/dl (3.5-5.0) 02/13/24 12:15
Physical Exam
-
Vital Signs:
Vital Signs
Temp Pulse Resp BP Pulse Ox
97.5 F 85 27 162/98 97
02/15/24 08:15 02/15/24 08:00 02/15/24 08:00 02/15/24 08:00 02/15/24 08:19
Cardiovascular:: Regular rate and rhythm
Respiratory:: Bilateral: Coarse
Lung Excursion:: Normal
Abdomen:: Nontender and Soft
Bowel Sounds:: Normal
Extremity Edema:: None: Bilateral:
[2024-02-15] MEDS: PROCARDIA XL (EXTENDED RELEASE) 30 MG PO ×2 (10:34→19:51)
--- NOTE | 2024-02-15 11:14 | W.PN.HOSP.TC ---
Today's Communication/Plan
-
Nicardipine drip with attempt to titrate antihypertensive regimen.
Workup for secondary hypertension.
Aspirin, Lipitor
Neurologic monitoring
Total Critical Care Time___45__ minutes. I was immediately available to the patient and staff. I personally examined, reviewed labs, diagnostic images/reports, interpretations, treatment plans, discussed patient care with other providers and
family or caregivers (if patient is unable to make decisions), entered orders as appropriate and documented the medical record.
Assessment / Plan
Assessment / Plan
Impression:
Presentation with lightheadedness.
Acute versus subacute left parietal CVA.
Asymptomatic right ICA 50 to 69% stenosis
Hypertensive emergency
Obesity with BMI of 36
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
Remote history of IVDA/heroin and 20s
Plan:
Acute/subacute left hemispheric CVA
Presents with lightheadedness
Neuroexam with no focal findings.
CT head Subtle focal region of decreased density within the left posterior paramedian parietal lobe, as described. Finding is most suggestive of an area of infarction. This is most likely an old area of infarction, but could conceivably be subacute.
CTA No acute pathology of the head and neck.
50-69% right proximal internal carotid artery stenosis.
Less than 50% left proximal internal carotid artery stenosis
MRI brain Acute to subacute infarcts of the left posterior cerebral artery distribution with some suspected mild petechial hemorrhage.
Continue neurochecks
Aggressive BP control see below.
MRI of the brain
Neurology consultation baseline aspirin pain
LDL 135, initiated on statin
Hemoglobin A1c 5.1
Echocardiogram preserved biventricular function. No significant valvular abnormalities. LVH
Hypertensive emergency in the settings of acute/subacute CVA. BP 205/123
Denies chest pain
Normal renal function
ECG sinus bradycardia
Workup for secondary hypertension
Renal sonogram with renal artery Doppler
Transitioned to ICU care
Initiated nicardipine drip.
Labetalol
Nicardipine
Required to reintroduce clonidine
Anticipated Discharge: 24 - 48 hours
Subjective/Interval History
-
Date of Service: February 15, 2024
Objective Data
-
Labs:
Laboratory Results
02/15/24
06:30
WBC 7.6
Hgb 16.1
Hct 46.3
Plt Count 212
Sodium 142
Potassium 4.3
Chloride 103
Carbon Dioxide 27
BUN 16
Creatinine 0.9
Glucose 91
Calcium 9.9
Vital Signs:
Vital Signs
Temp Pulse Resp BP Pulse Ox
97.5 F 99 12 129/92 94
02/15/24 08:15 02/15/24 10:34 02/15/24 10:15 02/15/24 10:34 02/15/24 09:15
I&O
02/14/24 02/15/24 02/16/24
06:59 06:59 06:59
Intake Total 480 / 480 566 / 566 450 / 450
Output Total 2100 / 2100 800 / 800
Balance 480 / 480 -1534 / -1534 -350 / -350
Physical Exam
-
General: Well Developed and No Apparent Distress
HEENT: Normocephalic, Atraumatic and Moist Mucous Membranes
Respiratory: Clear to Auscultation
Cardiac: Regular Rhythm and S1/S2; Negative Murmur, Rub or Gallop
GI: Soft, Nontender, Nondistended and Normal Bowel Sounds; Negative Organomegaly
Rectal: Deferred by Provider
Musculoskeletal: No Clubbing, No Cyanosis and No Edema
Skin: Negative Rash
Neuro: Awake, Alert, Oriented, AO x 3 and Nonfocal/Grossly Intact
--- NOTE | 2024-02-15 11:21 | PTCARENOTE ---
assisted patient in ambulating. Cardene gtt off. Started nicardipine xl per nephrology. Also spoke with US. Patient to have Renal ultrasound, did eat breakfast but was instructed to not eat lunch and US to be up to room this afternoon.
--- NOTE | 2024-02-15 12:05 | W.PN.NEURO.1 ---
Today's Communication / Plan
-
Blood pressure management
Neuro Assessment/Plan
Assessment
68-year-old male with history of uncontrolled hypertension and left occipital infarct with right quadrantanopsia
Plan
Blood pressure control
Aspirin
Ophthalmology evaluation as outpatient
Sleep study as outpatient
Subjective/Objective
Subjective Data
Date of Service: February 15, 2024
Pat doing well except for HTN
Objective Data
Vital Signs
Temp Pulse Resp BP Pulse Ox
36.8 C 91 19 152/103 94
02/15/24 11:52 02/15/24 11:15 02/15/24 11:15 02/15/24 11:15 02/15/24 09:15
Lab Results
02/15/24 06:30
02/15/24 06:30
PT 14.0 Sec (11.4-14.6) 02/14/24 08:19
INR 1.07 02/14/24 08:19
APTT 34.7 Sec (23.4-35.0) 02/14/24 08:19
Sodium 142 mmol/L (135-145) 02/15/24 06:30
Potassium 4.3 mmol/L (3.5-5.1) 02/15/24 06:30
BUN 16 mg/dl (9-20) 02/15/24 06:30
Glucose 91 mg/dl (70-99) 02/15/24 06:30
Calcium 9.9 mg/dl (8.4-10.2) 02/15/24 06:30
LDL Cholesterol, Calc 135 mg/dl 02/14/24 08:19
Vitamin B12 664 pg/ml (239-931) 02/14/24 08:19
Ur Buprenorphine Negative (Negative) 02/14/24 13:04
Patient Allergies
No Known Allergies Allergy (Verified 03/30/20 20:39)
Review of Systems
-
All other systems: Reviewed and negative
Physical Exam
-
General: Well Developed, Well Nourished and No Apparent Distress
Eyes: Able to visualize OU, Unremarkable, Round OU, [place] Conjunctivae and No Ptosis
HEENT: Normocephalic, Atraumatic and Anicteric
Neck: Full Range of Motion
Extremities: No Clubbing, No Cyanosis and No Edema
Psych: Unremarkable
Extended Neurological Exam
Mood & Affect: Mood Unremarkable and Affect Unremarkable
Attention Span & Concentration: Awake, Alert, Interactive and No Difficulty with 2 Step Request
Memory: Unremarkable
Tremor: Hand Tremor Absent and Head Tremor Absent
Involuntary Movement: None
Speech: Quality Unremarkable and Quantity Unremarkable
Cranial Nerve II: Left Eye: Pupillary Reactivity Unremarkable, Pupillary Size Unremarkable and Visual Delacruz Reduced (Right Quadrantnopsia)
Cranial Nerve II: Right Eye: Pupillary Reactivity Unremarkable, Pupillary Size Unremarkable and Visual Delacruz Reduced (Right Quadrantnopsia)
Cranial Nerves III, IV, : Extraocular Movement: Extraocular Movement Full in all Directions
Cranial Nerve V: Facial Sensation: Intact to Light Touch
Cranial Nerve VIII: Hearing: Unremarkable Hearing to Normal Conversational Volume
Cranial Nerves IX, X: Palate Movement: Palate Elevation Symmetric
Cranial Nerve XI: Shoulder Shrug: Unremarkable
Cranial Nerve XII: Tongue Protusion: Midline
Muscle Strength, Overall: Full Throughout
Muscle Bulk & Tone: Bulk Unremarkable and Tone Unremarkable
Pronator Drift: No Drift in Upper Extremities and No Drift in Lower Extremities
Deep Tendon Reflexes: Unremarkable Throughout
Cold Sensation: Unremarkable
Vibration Sensation: Unremarkable
Touch Sensation: Unremarkable
Coordination: [id number] Testing Unremarkable
Babinski Sign: Absent Bilaterally
Gait & Station: Up from Seated Without Problem
Data Reviewed
-
MRI Head: Image Reviewed (Left Occipital infarction)
--- NOTE | 2024-02-15 12:05 | PTOTSP ---
The patient is independent with ambulation and elevations, no strength, balance or coordination deficits noted. No PT needs identified at this time, will sign off.
--- NOTE | 2024-02-15 12:31 | CM ---
CM following re: discharge planning.
Discussed in Rounds, reviewed pt's chart, met with pt.
Pt is a 68 year old male, admitted with primary dx of CVA.
Pt reports he lives with spouse 2SH, 2 steps to enter, has 2 supportive children. Pt described himself as independent in all areas [employer]SEM[employer], drives, works.
PT, OT, ST evaluations noted - pt has no skilled needs.
PCP: Kimberly Christianson
Pharmacy: [facility]
D/C plan: home no needs. Spouse to transport at discharge.
CM will follow with discharge plan updates as needed.
--- NOTE | 2024-02-15 14:01 | PTCARENOTE ---
US at bedside for renal US.
[2024-02-15] MEDS: ATIVAN 1 MG PO (17:36)
[2024-02-15] MEDS: LIPITOR 40 MG PO (17:37)
[2024-02-15] MEDS: CATAPRES 0.2 MG PO (19:51)
--- NOTE | 2024-02-15 20:00 | PTCARENOTE ---
Resumed care of pt this evening. NIHSS-1, performed at bedside with day shift RN. Score of 1 for lower right visual field deficit. Pt A&Ox3, can make move all 4 extremities, and can make needs known. Pt is NSR w/ PVCs on tele monitor, has no edema,
and +pedal pulses. Pt on RA satting at 94% pulse ox. On auscultation pt lungs sound clear. Pt's abdomen is round, obese, and has active BS. Pt able to ambulate to bathroom to void. Skin is C/D/I.
--- NOTE | 2024-02-15 20:00 | PTCARENOTE ---
Pt continues to tolerate being off cardene gtt, see captured BP vital signs.
[2024-02-16] VITALS (13 sets, daily range): BP systolic 121–154; BP diastolic 71–105; BMI 36.0
--- NOTE | 2024-02-16 02:00 | PTCARENOTE ---
Upon reassessment pt resting comfortably at this time.
--- NOTE | 2024-02-16 07:58 | W.PN.INTV ---
Today's Communication / Plan
Recommendations
Cardene weaned
Adjust oral antihypertensives
Neurovascular checks
Increase activity
Transfer out of ICU-call pulmonary if respiratory issues arise
Assessment
-
68-year-old male with history of hypertension, adrenal tumor resection, hepatitis C presented with lightheadedness and felt to have hypertensive emergency in addition to CVA and transferred to ICU-senior warehouse clerk consulted for hypertensive
emergency/CVA/critical care management 02/14/2024.
Acute/subacute left parietal-occipital lobe CVA
Hypertensive emergency
Lightheadedness
JOSE suspected
Conditions present prior to admission:
Hypertension.
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
Hepatitis C.
Left eye strabismus diagnosed 6 years ago.
Obesity-BMI 36
Bilateral total knee replacement.
Plan
Neurovascularly intact
Blood pressure better controlled
Supplemental oxygen to maintain saturation greater than 92%
Aspiration precautions
Monitor blood pressure closely
Monitor for end organ effect of severe hypertension
Hydralazine as needed
Labetalol as needed
Nicardipine weaned off about 12 hours ago
Nephrology consultation noted-correspondence reviewed-reviewed with Dr. Montgomery
Consider losartan or spironolactone
Labetalol 200 mg orally 3 times daily
Nifedipine extended release added
Clonidine initiated
Hydralazine as needed
Secondary causes including renal vascular/primary hyperaldosteronism/Ashley's/pheochromocytoma/etc.-pending
Neurology evaluation ongoing
Monitor blood pressure closely-goal SBP < 180, DBP < 105
Neuro checks per protocol-NIHSS
CT head and CTA head and neck angiogram summarized below
Brain MRI summarized below
Continue aspirin 81 mg indefinitely
Not a candidate for TNK/IAT due to being outside time window, stroke already visualized on CT imaging
Slowly lowering blood pressure to goal normotension
Echocardiogram 02/14/2024-EF 55-60%, no significant valvular disease
LDL goal less than 70
Atorvastatin
Vascular surgery evaluation for right ICA stenosis
Monitor blood sugar-insulin as needed-goal blood sugar 140-180
DVT prophylaxis-sequential for 24 hours-holding as potential petechial hemorrhages-begin Lovenox if neurology is okay with it
Stroke education packet
Speech therapy/occupational therapy/physical therapy evaluation
No driving-patient needs outpatient visual field testing/clearance by ophthalmology for driving clearance
If able to be weaned off Cardene then transfer out of ICU-call pulmonary if respiratory issues arise
Outpatient sleep disorders evaluation-denies significant snoring and is not somnolent, however, is difficult to control hypertension, stroke, thick neck, Etc.-associations with untreated sleep apnea were reviewed-will arrange for outpatient
follow-up with probable home sleep study and treatment if necessary
Reviewed the patient's pertinent medical records including radiographs, microbiology, laboratory evaluations, and discussion with primary team, consultants, pharmacy, nutrition, physical therapy, case management, charge nurse, critical care
nursing, and respiratory therapy.
Diagnostic data:
Chest x-ray 07/29/2019-NAD
CT Head 02/13/24: Subtle focal region of decreased density within the left posterior paramedian parietal lobe, as described. Finding is most suggestive of an area of infarction. This is most likely an old area of infarction, but could conceivably be
subacute. If any previous imaging examination of the head are available, comparison to those exams would be useful.
CTA Head/Neck 02/13/24: No acute pathology of the head and neck. 50-69% right proximal internal carotid artery stenosis. Less than 50% left proximal internal carotid artery stenosis. Multilevel degenerative disc disease of the cervical spine.
Brain MRI 02/14/2024-acute/subacute infarcts of the left posterior cerebral artery circulation with some suspected mild petechial hemorrhage, restricted diffusion at the paramedial left parieto-occipital junction measuring 3.6 cm, smaller foci of
restricted diffusion further inferiorly in the left occipital lobe compatible with acute or subacute infarcts of the left posterior cerebral artery distribution
Subjective Dataa
Subjective Data
Date of Service:
Date of Service: February 16, 2024
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
Subjective:
No complaints of shortness of breath, chest pain or abdominal pain, no new neurologic complaints
Review of Systems
General: Other (Per HPI)
Objective Data
Data Reviewed
Vital Signs / I&O / Oxygen:
Vital Signs
Temp Pulse Resp BP Pulse Ox
98.1 F 79 15 122/71 95
02/16/24 03:19 02/16/24 05:00 02/16/24 05:00 02/16/24 05:00 02/15/24 20:00
Intake and Output
02/15/24 02/16/24 02/17/24
06:59 06:59 06:59
Intake Total 566 / 566 930 / 930
Output Total 2100 / 2100 1300 / 1300
Balance -1534 / -1534 -370 / -370
SaO2 95
Physical Exam
General: Respiratory Distress (n) and Comfortable
HEENT: Normocephalic, Anicteric and Moist Mucous Membranes
Cardiovascular: Regular Rhythm
Respiratory: Crackles (n), Rhonchi (n), Non-Labored Respirations, Accessory Resp Muscle Use (n) and Stridor (n)
GI: Soft, Non Distended and Non Tender
Neurology: Awake, Alert and No Motor Deficits
Skin: Warm, Good Color, Cyanosis (n), Jaundice (n) and Rash (n)
Labs/Micro/Reports
Microbiology
02/13/24 22:53 Nose MRSA Screen - Final
No Methicillin Resistant Staphylococcus aureus isolated.
[2024-02-16 08:09] LABS: Hematocrit 46.5 % (39.0-52.0); Hemoglobin 16.1 g/dL (13.0-18.0); Mean Corp Hgb Conc. 34.6 g/dL (33.0-37.0); Mean Corpuscular Hgb 28.9 pg (27.0-31.0); Mean Corpuscular Volume 83.5 fL (80.0-94.0); Mean Platelet Volume 10.9 fL (7.4-10.4); Platelet Count 228 10^3/uL (130-400); Red Blood Cell Count 5.57 10^6/uL (4.70-6.10); Red Cell Dist. Width 13.2 % (11.5-14.5)
[2024-02-16 08:13] LABS: Blood Urea Nitrogen 16 mg/dl (9-20); Calcium 9.9 mg/dl (8.4-10.2); Carbon Dioxide 25 mmol/L (22-30); Chloride 104 mmol/L (98-107); Estimated Creatinine Clearance 108 ml/min; Glucose 91 mg/dl (70-99); Potassium 4.2 mmol/L (3.5-5.1); Sodium 141 mmol/L (135-145); eGFR > 60.00
[2024-02-16] MEDS: LOW STRENGTH ASPIRIN 81 MG PO (08:14)
--- NOTE | 2024-02-16 08:14 | W.PN.NEPH.PH ---
Today's Communication / Plan
-
Maintain current antihypertensives
Will add Aldactone or losartan next if needed
Assessment/Plan
-
Assessment
Hypertensive emergency
Left parietal stroke
Lightheadedness
Obesity
Plan
Secondary workup pending
renal artery duplex negative
Cardene drip continues
Labetalol 200 mg TID
added nifedipine ER 30mg BID
clonidine at ,2mg BID
Hydralazine as needed intravenous
Follow BMP
Low-salt diet low caloric diet
-
-
Date of Service: February 16, 2024
CC / HPI / ROS
-
Chief Complaint:
HTN
History of Present Illness:
BP stable on multi rx regiment
on cardene gtt
Cr at baseline
on ASA for recent CVA
Review of Systems:
no CP/SOB
Labs
-
Labs:
WBC 9.0 10^3/uL (4.8-10.8) 02/16/24 06:35
RBC 5.57 10^6/uL (4.70-6.10) 02/16/24 06:35
Hgb 16.1 g/dL (13.0-18.0) 02/16/24 06:35
Hct 46.5 % (39.0-52.0) 02/16/24 06:35
Plt Count 228 10^3/uL (130-400) 02/16/24 06:35
Sodium 141 mmol/L (135-145) 02/16/24 06:35
Potassium 4.2 mmol/L (3.5-5.1) 02/16/24 06:35
Chloride 104 mmol/L (98-107) 02/16/24 06:35
Carbon Dioxide 25 mmol/L (22-30) 02/16/24 06:35
BUN 16 mg/dl (9-20) 02/16/24 06:35
Creatinine 0.9 mg/dL (0.7-1.3) 02/16/24 06:35
eGFR > 60.00 02/16/24 06:35
Glucose 91 mg/dl (70-99) 02/16/24 06:35
Calcium 9.9 mg/dl (8.4-10.2) 02/16/24 06:35
Albumin 4.3 g/dl (3.5-5.0) 02/13/24 12:15
Physical Exam
-
Vital Signs:
Vital Signs
Temp Pulse Resp BP Pulse Ox
98.1 F 79 15 122/71 95
02/16/24 03:19 02/16/24 05:00 02/16/24 05:00 02/16/24 05:00 02/15/24 20:00
Cardiovascular:: Regular rate and rhythm
Respiratory:: Bilateral: Coarse
Lung Excursion:: Normal
Abdomen:: Nontender and Soft
Bowel Sounds:: Normal
Extremity Edema:: None: Bilateral:
[2024-02-16] MEDS: TRANDATE 200 MG PO ×3 (08:15→21:25)
[2024-02-16] MEDS: CATAPRES 0.2 MG PO ×2 (08:15→20:11)
[2024-02-16] MEDS: PROCARDIA XL (EXTENDED RELEASE) 30 MG PO ×2 (08:15→20:11)
--- NOTE | 2024-02-16 14:46 | TRANSFER ---
Pt transferred to 4W, report given to walker. pt transported via wheelchair.
--- NOTE | 2024-02-16 14:47 | CM ---
CM following re: discharge planning.
Reviewed pt's chart, met with pt earlier this morning.
D/C plan: remains unchanged - home with no after care VN needs. Spouse to transport at discharge.
--- NOTE | 2024-02-16 15:10 | W.PN.HOSP.TC ---
Today's Communication/Plan
-
Off Cardene drip.
Adjust antihypertensive regimen.
Transition out of ICU
Continue aspirin
Continue statin
Assessment / Plan
Assessment / Plan
Impression:
Presentation with lightheadedness.
Acute versus subacute left parietal CVA.
Asymptomatic right ICA 50 to 69% stenosis
Hypertensive emergency
Obesity with BMI of 36
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
Remote history of IVDA/heroin and 20s
Plan:
Acute/subacute left hemispheric CVA
Presents with lightheadedness
Neuroexam with no focal findings.
CT head Subtle focal region of decreased density within the left posterior paramedian parietal lobe, as described. Finding is most suggestive of an area of infarction. This is most likely an old area of infarction, but could conceivably be subacute.
CTA No acute pathology of the head and neck.
50-69% right proximal internal carotid artery stenosis.
Less than 50% left proximal internal carotid artery stenosis
MRI brain Acute to subacute infarcts of the left posterior cerebral artery distribution with some suspected mild petechial hemorrhage.
Continue neurochecks
Aggressive BP control see below.
Neurology consultation baseline aspirin pain
LDL 135, initiated on statin
Hemoglobin A1c 5.1
Echocardiogram preserved biventricular function. No significant valvular abnormalities. LVH
Hypertensive emergency in the settings of acute/subacute CVA. BP 205/123
Denies chest pain
Normal renal function
ECG sinus bradycardia
Workup for secondary hypertension
Renal sonogram with renal artery Doppler without evidence of renal artery obstruction
Weaned off Cardene drip.
Adjust oral antihypertensive regimen
Currently with introduction of labetalol, nicardipine.
Continue clonidine
Anticipated Discharge: 24 - 48 hours
Subjective/Interval History
-
Date of Service: February 16, 2024
Objective Data
-
Labs:
Laboratory Results
02/16/24
06:35
WBC 9.0
Hgb 16.1
Hct 46.5
Plt Count 228
Sodium 141
Potassium 4.2
Chloride 104
Carbon Dioxide 25
BUN 16
Creatinine 0.9
Glucose 91
Calcium 9.9
Vital Signs:
Vital Signs
Temp Pulse Resp BP Pulse Ox
97.8 F 82 11 131/84 98
02/16/24 12:00 02/16/24 10:00 02/16/24 10:00 02/16/24 10:00 02/16/24 11:42
I&O
02/15/24 02/16/24 02/17/24
06:59 06:59 06:59
Intake Total 566 / 566 930 / 930
Output Total 2100 / 2100 1300 / 1300
Balance -1534 / -1534 -370 / -370
Physical Exam
-
General: Well Developed and No Apparent Distress
HEENT: Normocephalic, Atraumatic and Moist Mucous Membranes
Respiratory: Clear to Auscultation
Cardiac: Regular Rhythm and S1/S2; Negative Murmur, Rub or Gallop
GI: Soft, Nontender, Nondistended and Normal Bowel Sounds; Negative Organomegaly
Rectal: Deferred by Provider
Musculoskeletal: No Clubbing, No Cyanosis and No Edema
Skin: Negative Rash
Neuro: Awake, Alert, Oriented, AO x 3 and Nonfocal/Grossly Intact
[2024-02-16] MEDS: LIPITOR 40 MG PO (16:58)
--- NOTE | 2024-02-16 20:04 | VATNOTE ---
Called to assess left ac old iv site. appears red and swollen measuring at 11cm X 10cm . Warm compress applied with some comfort. Elevated on pillow. Will alternate warm to cool compress per patient's comfort. Primary RN made aware. Will monitor
closely.
--- NOTE | 2024-02-16 21:26 | W.PN.NEURO.1 ---
Today's Communication / Plan
-
Continue current BP management with Clonidine, Labetalol, Nifedipine
Continue aspirin
Low dose Statin
Neuro Assessment/Plan
Assessment
68-year-old male with history of uncontrolled hypertension and left occipital infarct with right quadrantanopsia
Plan
Blood pressure control
Aspirin
Ophthalmology evaluation as outpatient
Sleep study as outpatient
Subjective/Objective
Subjective Data
Date of Service: February 16, 2024
Pat is doing well BP controlled on Clonidine 0.2mg BID, Labetalol 200mg TID and Nifedipine 30mg BID
Objective Data
Vital Signs
Temp Pulse Resp BP Pulse Ox
36.6 C 92 18 150/102 96
02/16/24 19:55 02/16/24 19:55 02/16/24 19:55 02/16/24 19:55 02/16/24 19:55
Lab Results
02/16/24 06:35
02/16/24 06:35
PT 14.0 Sec (11.4-14.6) 02/14/24 08:19
INR 1.07 02/14/24 08:19
APTT 34.7 Sec (23.4-35.0) 02/14/24 08:19
Sodium 141 mmol/L (135-145) 02/16/24 06:35
Potassium 4.2 mmol/L (3.5-5.1) 02/16/24 06:35
BUN 16 mg/dl (9-20) 02/16/24 06:35
Glucose 91 mg/dl (70-99) 02/16/24 06:35
Calcium 9.9 mg/dl (8.4-10.2) 02/16/24 06:35
LDL Cholesterol, Calc 135 mg/dl 02/14/24 08:19
Vitamin B12 664 pg/ml (239-931) 02/14/24 08:19
Ur Buprenorphine Negative (Negative) 02/14/24 13:04
Patient Allergies
No Known Allergies Allergy (Verified 07/29/19 20:39)
Physical Exam
-
General: Well Developed, Well Nourished and No Apparent Distress
Eyes: Able to visualize OU, Unremarkable and Round OU
HEENT: Normocephalic and Atraumatic
Neck: No Bruits Bilaterally
Respiratory: Clear to Auscultation
Extremities: No Clubbing and No Cyanosis
Psych: Unremarkable
Extended Neurological Exam
Mood & Affect: Mood Unremarkable and Affect Unremarkable
Attention Span & Concentration: Awake, Alert, Interactive and No Difficulty with 2 Step Request
Memory: Unremarkable
Tremor: Hand Tremor Absent and Head Tremor Absent
Involuntary Movement: None
Speech: Quality Unremarkable, Quantity Unremarkable and Rate of Production Unremarkable
Cranial Nerve II: Left Eye: Pupillary Reactivity Unremarkable, Pupillary Size Unremarkable and Visual Delacruz Reduced (Right Quadrantnopsia)
Cranial Nerve II: Right Eye: Pupillary Reactivity Unremarkable, Pupillary Size Unremarkable and Visual Delacruz Reduced (Right quadrantnopsia)
Cranial Nerves III, IV, : Extraocular Movement: Extraocular Movement Full in all Directions
Cranial Nerve V: Facial Sensation: Intact to Light Touch
Cranial Nerve VII: Facial Symmetry: Normal Facial Symmetry
Cranial Nerve VIII: Hearing: Unremarkable Hearing to Normal Conversational Volume
Cranial Nerves IX, X: Palate Movement: Palate Elevation Symmetric
Cranial Nerve XI: Shoulder Shrug: Unremarkable
Cranial Nerve XII: Tongue Protusion: Midline
Muscle Strength, Overall: Full Throughout
Muscle Bulk & Tone: Bulk Unremarkable and Tone Unremarkable
Pronator Drift: No Drift in Upper Extremities and No Drift in Lower Extremities
Deep Tendon Reflexes: Unremarkable Throughout
Cold Sensation: Unremarkable
Vibration Sensation: Unremarkable
Touch Sensation: Unremarkable
Coordination: [id number] Testing Unremarkable and Reaches for Objects without Difficulty
Babinski Sign: Absent Bilaterally
Gait & Station: Unremarkable Arm Swing, Up from Seated Without Problem and Romberg Test Negative
Modified Veda Score (MRS)
-
Modified [place] Scale (mRS): No significant disability. Able to carry out usual activities.
Score: 1
[2024-02-17 03:12] VITALS: BP 149/88
[2024-02-17 07:00] VITALS: BP 154/99
[2024-02-17] MEDS: PROCARDIA XL (EXTENDED RELEASE) 30 MG PO (07:42)
[2024-02-17] MEDS: CATAPRES 0.2 MG PO (07:42)
[2024-02-17] MEDS: TRANDATE 200 MG PO ×2 (07:43→16:37)
[2024-02-17] MEDS: LOW STRENGTH ASPIRIN 81 MG PO (07:43)
[2024-02-17 10:19] LABS: Aldosterone, Serum 8.3 ng/dL; Aldosterone/Renin Activ Ratio 27.7 ratio (<=25.0); Renin Activity Results 0.3 ng/mL/hr
[2024-02-17 11:00] VITALS: BP 140/91
--- NOTE | 2024-02-17 11:14 | W.PN.NEPH.PH ---
Today's Communication / Plan
-
Add losartan 25 mg at discharge
Discharge on labetalol 300 mg 3 times daily
We will arrange follow-up
Assessment/Plan
-
Assessment
Hypertensive emergency
Left parietal stroke
Lightheadedness
Obesity
Plan
Secondary workup pending
Aldosterone to renin ratio level 27:
renal artery duplex negative
I will increase labetalol to 300 mg 3 times daily
added nifedipine ER 30mg BID
clonidine at ,2mg BID
Hydralazine as needed intravenous
I will add low-dose losartan 25 mg daily
Low-salt diet low caloric diet
-Stable for discharge from my standpoint follow-up will be arranged
-
-
Date of Service: February 17, 2024
CC / HPI / ROS
-
Chief Complaint:
HTN
History of Present Illness:
BP stable on multi rx regiment
on cardene gtt
Cr at baseline
on ASA for recent CVA
Review of Systems:
no CP/SOB
Labs
-
Labs:
WBC 9.0 10^3/uL (4.8-10.8) 02/16/24 06:35
RBC 5.57 10^6/uL (4.70-6.10) 02/16/24 06:35
Hgb 16.1 g/dL (13.0-18.0) 02/16/24 06:35
Hct 46.5 % (39.0-52.0) 02/16/24 06:35
Plt Count 228 10^3/uL (130-400) 02/16/24 06:35
Sodium 141 mmol/L (135-145) 02/16/24 06:35
Potassium 4.2 mmol/L (3.5-5.1) 02/16/24 06:35
Chloride 104 mmol/L (98-107) 02/16/24 06:35
Carbon Dioxide 25 mmol/L (22-30) 02/16/24 06:35
BUN 16 mg/dl (9-20) 02/16/24 06:35
Creatinine 0.9 mg/dL (0.7-1.3) 02/16/24 06:35
eGFR > 60.00 02/16/24 06:35
Glucose 91 mg/dl (70-99) 02/16/24 06:35
Calcium 9.9 mg/dl (8.4-10.2) 02/16/24 06:35
Albumin 4.3 g/dl (3.5-5.0) 02/13/24 12:15
Physical Exam
-
Vital Signs:
Vital Signs
Temp Pulse Resp BP Pulse Ox
97.9 F 87 16 154/99 95
02/17/24 07:00 02/17/24 07:00 02/17/24 07:00 02/17/24 07:00 02/17/24 07:00
Cardiovascular:: Regular rate and rhythm
Respiratory:: Bilateral: Coarse
Lung Excursion:: Normal
Abdomen:: Nontender and Soft
Bowel Sounds:: Normal
Extremity Edema:: None: Bilateral:
--- NOTE | 2024-02-17 11:52 | W.PN.HOSP.TC ---
Today's Communication/Plan
-
d/c home
left arm US
Assessment / Plan
Assessment / Plan
Impression:
Presentation with lightheadedness.
Acute versus subacute left parietal CVA.
Asymptomatic right ICA 50 to 69% stenosis
Hypertensive emergency
Obesity with BMI of 36
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
Remote history of IVDA/heroin and 20s
Plan:
Acute/subacute left hemispheric CVA
Presents with lightheadedness
Neuroexam with no focal findings.
CT head Subtle focal region of decreased density within the left posterior paramedian parietal lobe, as described. Finding is most suggestive of an area of infarction. This is most likely an old area of infarction, but could conceivably be subacute.
CTA No acute pathology of the head and neck.
50-69% right proximal internal carotid artery stenosis.
Less than 50% left proximal internal carotid artery stenosis
MRI brain Acute to subacute infarcts of the left posterior cerebral artery distribution with some suspected mild petechial hemorrhage.
Continue neurochecks
Aggressive BP control see below.
Neurology consultation baseline aspirin pain
LDL 135, initiated on statin
Hemoglobin A1c 5.1
Echocardiogram preserved biventricular function. No significant valvular abnormalities. LVH
Hypertensive emergency in the settings of acute/subacute CVA. BP 205/123
Denies chest pain
Normal renal function
ECG sinus bradycardia
Workup for secondary hypertension
Renal sonogram with renal artery Doppler without evidence of renal artery obstruction
Weaned off Cardene drip.
Adjust oral antihypertensive regime
Continue clonidine
Discussed with nephro and recommended regimen of clonidine, procardia 90BID and labetalol 300TID
will need to f/u in nephrology office for further management
left arm IV site - swelling - US Venous doppler ordered to r/o any complications- can safely discharge if SVT and localized edema only on imaging.
Discharge home if Left arm US does not show any major issues
Discharge time : 38 mins
Anticipated Discharge: Today
Subjective/Interval History
-
Date of Service: February 17, 2024
no new complains overnight
have left arm localized hard nontender swelling at IV site
afebrile
Objective Data
-
Vital Signs:
Vital Signs
Temp Pulse Resp BP Pulse Ox
97.9 F 87 16 154/99 95
02/17/24 07:00 02/17/24 07:00 02/17/24 07:00 02/17/24 07:00 02/17/24 07:00
I&O
02/16/24 02/17/24 02/18/24
06:59 06:59 06:59
Intake Total 930 / 930 480 / 480
Output Total 1300 / 1300
Balance -370 / -370 480 / 480
Review of Systems
-
Respiratory: Reports No Symptoms
Cardiac: Reports No Symptoms
Abdomen/GI: Reports No Symptoms
Physical Exam
-
General: No Apparent Distress and Comfortable
HEENT: Negative Oxygen
Respiratory: Clear to Auscultation
Cardiac: Regular Rhythm and S1/S2; Negative Murmur or Rub
GI: Soft, Nontender, Nondistended and Normal Bowel Sounds
Musculoskeletal: No Edema
Skin: IV Access / Catheter Site (Left arm IV site- swelling, IV removed)
Neuro: Awake, Alert, Oriented, No Motor Deficits and Nonfocal/Grossly Intact
Psych: Calm
[2024-02-17] MEDS: FLUAD (65 yr+) 2024-2025 FORMULA 0.5 ML IM (13:09)
[2024-02-17 16:37] VITALS: BP 151/94
[2024-02-17] MEDS: LIPITOR 40 MG PO (17:15)
[2024-02-18 09:03] LABS: 24 Hour Urine Total Volume Random mL; Creatinine, Urine per Volume 21 mg/dL; Urine Collection Length Random hr; VMA, Urine per Volume <0.5 mg/L
--- NOTE | 2024-02-18 14:54 | W.DCSUMMARY ---
Discharge Summary
Discharge Data
Date of Admission: 02/13/24
Date of Discharge: 02/17/24
-
Pending Results: No
Hospital Course
Discharging Physician : Dr Luke Soares
Disposition : Home
Primary care physician : Dr Kimberly Story
Principal Discharge diagnosis :
Acute versus subacute left parietal stroke with petechial hemorrhage
Hypertensive emergency
Right carotid arterial stenosis
Hypertensive emergency
Chronic Discharge diagnosis :
Obesity
History of malignant hypertension with left adrenal tumor resection in 2005
History of IV drug use/heroin in 20s
Hospital Course :
Patient is a 68-year-old male with no mentioned past medical history came to ER for new onset of lightheadedness. Patient had a CT head in ER which showed subtle posterior parietal lobe decreased density suggestive of infarction. CTA head and the
neck was done which did not show any critical stenosis. Patient was noted to be hypertensive and required to be started on Cardene drip in ICU. Sliver Lapper/nephrology/neurology were involved in care. Follow-up MRI brain showing acute to subacute
infarct in the left posterior cerebral artery distribution with mild petechial hemorrhage. After neuro clearance patient was started on antiplatelet/statin therapy. Echocardiogram was showing normal ejection fraction without significant
valvulopathy. Patient was able to be weaned off of Cardene drip and started on oral antihypertensive medication. Patient was requiring significant higher dose of blood pressure medication. Renal arterial Doppler did not show any significant
narrowing. At discharge patient is being placed on regimen of labetalol/nifedipine. Patient also had superficial venous thrombus diagnosed at left arm IV site and basilic vein, patient instructed to do warm compresses at home. Patient was cleared
by physical therapy for home discharge.
Important imaging findings :
MRI Brain
Restricted diffusion at the paramedian left parieto-occipital junction measuring up to 3.6 cm in length. Smaller foci of restricted diffusion further inferiorly in the left occipital lobe. Findings are most compatible with acute to subacute infarcts
of the left posterior cerebral artery distribution. T2/FLAIR hyperintense signal at this location corresponds to cytotoxic edema. Small foci of susceptibility raise suspicion for mild petechial blood products.
Mild age-related parenchymal atrophy. No mass effect, midline shift, or extra axial collection.
The vascular flow voids at the skull base are unremarkable, as far as visualized.
Mild mucosal thickening of the paranasal sinuses. Mild fluid signal opacification of the left inferior mastoid air cells.
Left UE Venous doppler
There is occlusive thrombus in the basilic vein in the left upper arm
CAT h&n
No acute pathology of the head and neck.
50-69% right proximal internal carotid artery stenosis.
Less than 50% left proximal internal carotid artery stenosis.
Multilevel degenerative disc disease of the cervical spine.
Procedure findings :
None
Discharge Plan
-
Patient Disposition: Home (Routine Discharge)
Discharge Diagnosis/Procedures: Left parietal CVA, HTN emergency
Condition: Fair
Diet: Low Cholesterol and Low Sodium
Activity: As tolerated
Driving Restrictions: As prior to admission
Bathing Restrictions: OK to Shower
Referrals:
Germán Simmons MD [Active] - in four to six weeks
Kimberly Story NP [Family Provider] - in one week
Shaheed Story MD [Active] - in two to three weeks (Dr. Story or FOOT CUTTER-evaluate for JOSE-needs home sleep study)
Prescriptions:
New
atorvastatin 40 mg Tablet
40 mg PO QPM Qty: 30 2RF
clonidine HCl 0.2 mg Tablet
0.2 mg PO BID Qty: 60 2RF
aspirin 81 mg Tablet,Chewable
81 mg PO DAILY Qty: 30 0RF
labetalol 300 mg tablet
300 mg PO TID Qty: 90 2RF
nifedipine [Procardia XL] 90 mg tablet extended release 24hr
90 mg PO DAILY Qty: 30 2RF
Continued
therapeutic multivitamin Tablet
1 tab PO DAILY
Held
sildenafil 100 mg tablet
100 mg PO DAILYPRN PRN (Reason: ed)
Hold Instructions: Resume on 03/12/24. Please discuss with PCP or Field Map Technician before resuming use
Discontinued
clonidine HCl 0.3 mg tablet
0.3 mg PO .3-4X DAILY
Discharge Orders:
Discharge Patient (As Directed); Ordered 02/17/24
Ordered By: Luke Soares
Discharge Date and Time
Discharge Date/Time: 02/17/24 17:28
Print Language: GRENADIAN
== END 2024-02-17 17:28 | disposition home or self-care (01) | DRG 65 ==
LOC: 4 WEST ACU 20:06
PROVIDERS: Internal Medicine; Nurse Practitioner Family; Physician Assistant; ADMITTING PHYSICIAN Internal Medicine; ATTENDING PHYSICIAN Hospitalist; CONSULT PHYSICIAN Internal Medicine Critical Care Medicine; CONSULT PHYSICIAN Psychiatry & Neurology Neurology; CONSULT PHYSICIAN Specialist; EMERGENCY PHYSICIAN Student in an Organized Health Care Education/Training Program; FAMILY PHYSICIAN Nurse Practitioner Family
PROC: 3E02340 Introduction of Influenza Vaccine into Muscle, Percutaneous Approach (ICD-10-PCS; 2024-02-17)
DX: I63.532 Cerebral infarction due to unspecified occlusion or stenosis of left posterior cerebral artery (principal); I16.1 Hypertensive emergency; I82.612 Acute embolism and thrombosis of superficial veins of left upper extremity; I10 Essential (primary) hypertension; R29.701 NIHSS score 1; E26.9 Hyperaldosteronism, unspecified; H50.9 Unspecified strabismus; G47.33 Obstructive sleep apnea (adult) (pediatric); B19.20 Unspecified viral hepatitis C without hepatic coma; H53.461 Homonymous bilateral field defects, right side; I65.21 Occlusion and stenosis of right carotid artery; E66.9 Obesity, unspecified; Z68.36 Body mass index [BMI] 36.0-36.9, adult; Z23 Encounter for immunization; Z82.3 Family history of stroke; Z87.891 Personal history of nicotine dependence; Z79.899 Other long term (current) drug therapy; Z96.653 Presence of artificial knee joint, bilateral
CPT/HCPCS: 70450; 70496; 70498; 70551; 76770; 80048; 80053; 80061; 80306; 81003; 82088; 82384; 82607; 82728; 82746; 83036; 83735; 83835; 84244; 84443; 84484; 84585; 85025; 85027; 85610; 85652; 85730; 86850; 86900; 86901; 87070; 92610; 93005; 93306; 93971; 93975; 96360; 97129; 97162; 97166; 99285; Q9967

== ENCOUNTER 2024-02-20 17:02 | Emergency (ER) | payer BC, SELFPAY ==
[2024-02-20] VITALS (8 sets, daily range): BP systolic 136–155; BP diastolic 85–102; PULSE 68–88; BMI 36.4
--- NOTE | 2024-02-20 17:07 | ED.GENMED ---
ED Provider Triage
<Payton Fowler PA-C - Last Filed: 02/20/24 17:11>
-
Patient seen by provider in Triage?: Seen in Triage
Attestation: A medical screening examination has been initiated by a qualified medical provider. Based on the assessment performed at this time, it has been determined that an emergent medical condition may exist and the patient has been informed
that further medical evaluation and possible additional diagnostic testing may be needed.
HPI: 68yoM here with lightheadedness. Feeling shaky and generally unwell for the past few hours. Recently admitted for hypertension and MRI showed 'Acute to subacute infarcts of the left posterior cerebral artery distribution with some suspected
mild petechial hemorrhage.'
GENERAL: Alert , in no apparent distress
EYE: No visual abnormalities.
NECK: Trachea midline
ENT: No visible abnormalities.
LUNGS: No acute respiratory distress
NEUROLOGICAL: Alert and oriented
SKIN: Skin intact. No visible changes.
MUSCULOSKELETAL: Moving extremities normally
PSYCH: Normal and appropriate interaction.
This is a medical evaluation conducted in person to initiate diagnostic evaluation and provide initial therapeutics. Please see further documentation by the treating clinician.
Cardiac labs and EKG ordered.
History of Present Illness
<Payton Fowler PA-C - Last Filed: 02/20/24 17:11>
General
Chief Complaint: Dizziness
Time Seen by Provider: 02/20/24 20:30
<Lulú Armendariz MD - Last Filed: 02/20/24 23:53>
History of Present Illness
History of Present Illness:
Patient is a 68-year-old man with history of hypertension, recent admission for left [employer] stroke discharged 3 days ago presenting to the emergency department with lightheadedness. Patient states that from 3 PM to 5 PM today he had lightheadedness.
did feel similar to what happened last week with a stroke however he did not have any vision changes changes or word finding difficulty. At this time he is back to his baseline. He does state that he has not taken any aspirin since he was
discharged. However he did take 324 of aspirin when this occurred.. He checked his blood pressure and it was normal. He states that resolved without any intervention. Denies any numbness tingling weakness. No speech changes. He does state that
he only drank 2 glasses of water today. Denies any near syncopal events. No problems with his gait. No room spinning sensation.
Past History
<Payton Fowler PA-C - Last Filed: 02/20/24 17:11>
Past History
ED Past Medical History: HTN and Other (Hepatitis C)
ED Past Surgical History: Other (Surgical resection of adrenal tumor)
Social History
Drug: Former user
Personal:
Phy Exam
<Lulú Armendariz MD - Last Filed: 02/20/24 23:53>
Physical Exam
Physical Exam:
GENERAL: in no acute distress
HEENT: normocephalic, extraocular movements intact, moist oral mucosa
NECK: normal inspection
RESPIRATORY: no respiratory distress, clear to auscultation bilaterally
CARDIOVASCULAR: regular rate and rhythm
ABDOMEN/: soft, non-distended, non-tender to palpation, no rebound or guarding
EXTREMITIES: non-tender, no edema/swelling
NEUROLOGIC: awake and alert, moves all extremities
SKIN: warm
Course
<Payton Fowler PA-C - Last Filed: 02/20/24 17:11>
Orders/Labs/Results
Orders:
Orders
02/20/24 17:03
Electrocardiogram (*1) Urgent
Reason for Study: Vertigo / Dizzy
EKG- Treatment ONCE
02/20/24 17:18
Complete Blood Count/With Diff Urgent
Comprehensive Metabolic Panel Urgent
Magnesium Urgent
Troponin I Urgent
02/20/24 21:01
Orthostatic VS- Treatment ONCE
02/20/24 21:02
CT Head W/o Iv Contrast Urgent
Comment:
Reason For Exam: TIA
02/20/24 23:32
Labetalol [Trandate] 300 mg PO NOW STA
Abnormal Lab Results
02/20/24
17:18
MPV 10.8 H fL
(7.4-10.4)
BUN 28 H mg/dl
(9-20)
02/20/24 17:18
02/20/24 17:18
Vital Signs
Initial and Last Documented VS:
Initial Vital Signs
Temp Pulse Resp BP Pulse Ox
98.1 F 80 18 144/92 96
02/20/24 17:07 02/20/24 17:07 02/20/24 17:07 02/20/24 17:07 02/20/24 17:07
Last Documented Vital Signs
Temp Pulse Resp BP Pulse Ox
97.8 F 86 18 150/96 96
02/20/24 19:54 02/20/24 19:54 02/20/24 17:07 02/20/24 23:00 02/20/24 19:54
<Lulú Armendariz MD - Last Filed: 02/20/24 23:53>
Orders/Labs/Results
Orders:
Orders
02/20/24 17:03
Electrocardiogram (*1) Urgent
Reason for Study: Vertigo / Dizzy
EKG- Treatment ONCE
02/20/24 17:18
Complete Blood Count/With Diff Urgent
Comprehensive Metabolic Panel Urgent
Magnesium Urgent
Troponin I Urgent
02/20/24 21:01
Orthostatic VS- Treatment ONCE
02/20/24 21:02
CT Head W/o Iv Contrast Urgent
Comment:
Reason For Exam: TIA
02/20/24 23:32
Labetalol [Trandate] 300 mg PO NOW STA
Abnormal Lab Results
02/20/24
17:18
MPV 10.8 H fL
(7.4-10.4)
BUN 28 H mg/dl
(9-20)
02/20/24 17:18
02/20/24 17:18
Vital Signs
Initial and Last Documented VS:
Initial Vital Signs
Temp Pulse Resp BP Pulse Ox
98.1 F 80 18 144/92 96
02/20/24 17:07 02/20/24 17:07 02/20/24 17:07 02/20/24 17:07 02/20/24 17:07
Last Documented Vital Signs
Temp Pulse Resp BP Pulse Ox
97.8 F 86 18 150/96 96
02/20/24 19:54 02/20/24 19:54 02/20/24 17:07 02/20/24 23:00 02/20/24 19:54
<Lulú Armendariz MD - Last Filed: 02/20/24 23:53>
MDM/Problems Addressed
Differential Diagnosis Includes:
Patient is a 68-year-old male with recent CVA, hypertension presenting to the emergency department with lightheadedness that has now resolved. Vitals are unremarkable and exam does not show any neurodeficits. Unclear cause of patient's
lightheadedness as it is nonspecific however could certainly be TIA with his symptoms. He does only drink about 2 glasses of water a day so there could be a component of orthostatic however he does not know any changes with position. Blood work
obtained prior to evaluation is unremarkable. Will obtain CT scan of the head. I did discuss with neurology to see there is any additional benefit in obtaining CTA however will hold off at this time. Will also obtain orthostatics.
<Lulú Armendariz MD - Last Filed: 02/20/24 23:53>
*Critical Care Note
Total Time (30-74mins, 75-104mins- exclusive of procedures): Not Applicable
<uLlú Armendariz MD - Last Filed: 02/20/24 23:53>
Update Note
Update Note:
On reevaluation patient is resting comfortably. CT scan without any acute infarct. I discussed this with patient and recommended admission for TIA. However patient would prefer to be discharged and have outpatient imaging. I did emphasize the
importance of being compliant with the baby aspirin. I did discuss with neurology who is amenable to outpatient MRI. Strict return precautions given. Will discharge at this time
ED Attending Note
<Payton Fowler PA-C - Last Filed: 02/20/24 17:11>
-
Portions of this chart may have been created with voice recognition software.� Occasional wrong word or��sound alike� substitutions may have occurred due to the inherent limitations of voice recognition software.
Discharge Plan
Departure
Patient Disposition: Home (Routine Discharge)
Date of Disposition: 02/20/24
Time of Disposition: 23:51
Patient with high blood pressure during this ER visit?: Yes
Discharge Problem:
Light-headed
Instructions: Dizziness
Prescriptions:
No Action
sildenafil 100 mg tablet
100 mg PO DAILYPRN PRN (Reason: ed)
therapeutic multivitamin Tablet
1 tab PO DAILY
atorvastatin 40 mg Tablet
40 mg PO QPM Qty: 30 2RF
clonidine HCl 0.2 mg Tablet
0.2 mg PO BID Qty: 60 2RF
aspirin 81 mg Tablet,Chewable
81 mg PO DAILY Qty: 30 0RF
labetalol 300 mg tablet
300 mg PO TID Qty: 90 2RF
nifedipine [Procardia XL] 90 mg tablet extended release 24hr
90 mg PO DAILY Qty: 30 2RF
Referrals:
Magdaleno Shi MD [Active] -
Kimberly Story NP [Family Provider] -
Interventions
Interventions:
*Risk Screen - Suicide Last Done: 02/20/24 20:53
*General Assessment Last Done: 02/20/24 20:53
*Neglect/Abuse Screening Last Done: 02/20/24 20:53
*ED COVID-19 Vaccine History Last Done: 02/20/24 20:53
ED- Neurological Assessment Last Done: 02/20/24 20:54
ED Swallowing Screen Last Done: 02/20/24 20:54
Discharge Date and Time
Print Language: LATVIAN
[2024-02-20 17:36] LABS: % Basophils 0.4 % (0-2); % Eosinophils 2.6 % (0-6); % Immature Granulocytes 0.4 % (0-0.5); % Lymphocytes 28.8 % (20.5-51.1); % Monocytes 7.4 % (1.7-9.3); % Neutrophils 60.4 % (42.2-75.2); Absolute Eosinophils 0.2 10^3/uL (0-0.7); Absolute Lymphocytes 2.2 10^3/uL (1.2-3.4); Absolute Monocytes 0.6 10^3/uL (0.1-0.6); Absolute Neutrophils 4.7 10^3/uL (1.4-6.5); Hematocrit 43.1 % (39.0-52.0); Mean Corp Hgb Conc. 34.8 g/dL (33.0-37.0); Mean Corpuscular Volume 83.2 fL (80.0-94.0); Mean Platelet Volume 10.8 fL (7.4-10.4); Nucleated Red Blood Cells % 0 % (-); Platelet Count 247 10^3/uL (130-400); Red Blood Cell Count 5.18 10^6/uL (4.70-6.10); Red Cell Dist. Width 13.2 % (11.5-14.5); White Blood Cell Count 7.7 10^3/uL (4.8-10.8)
[2024-02-20 18:03] LABS: ALT (SGPT) 23 U/L (0-50); AST (SGOT) 25 U/L (17-59); Albumin 4.5 g/dl (3.5-5.0); Alkaline Phosphatase 70 U/L (38-126); Blood Urea Nitrogen 28 mg/dl (9-20); Calcium 9.6 mg/dl (8.4-10.2); Carbon Dioxide 22 mmol/L (22-30); Chloride 103 mmol/L (98-107); Glucose 91 mg/dl (70-99); Potassium 4.6 mmol/L (3.5-5.1); Sodium 139 mmol/L (135-145); Total Bilirubin 0.5 mg/dl (0.2-1.3); Total Protein 7.2 g/dl (6.3-8.2); eGFR > 60.00
[2024-02-20 18:05] LABS: Troponin I < 0.012 ng/ml
== END 2024-02-20 23:59 | disposition home or self-care (01) ==
LOC: EMR 17:02
PROVIDERS: Physician Assistant; EMERGENCY PHYSICIAN Student in an Organized Health Care Education/Training Program; FAMILY PHYSICIAN Nurse Practitioner Family
DX: R42 Dizziness and giddiness (principal); I10 Essential (primary) hypertension; Z86.73 Personal history of transient ischemic attack (TIA), and cerebral infarction without residual deficits
CPT/HCPCS: 99284; 70450; 80053; 83735; 84484; 85025; 93005

== ENCOUNTER 2024-04-12 12:45 | Emergency (ER) | payer BC, SELFPAY ==
[2024-04-12 12:47] VITALS: BP 127/82
[2024-04-12 13:15] LABS: % Basophils 0.3 % (0-2); % Eosinophils 1.4 % (0-6); % Immature Granulocytes 0.3 % (0-0.5); % Lymphocytes 25.3 % (20.5-51.1); % Monocytes 6.8 % (1.7-9.3); % Neutrophils 65.9 % (42.2-75.2); Absolute Eosinophils 0.1 10^3/uL (0-0.7); Absolute Lymphocytes 1.6 10^3/uL (1.2-3.4); Absolute Monocytes 0.4 10^3/uL (0.1-0.6); Absolute Neutrophils 4.2 10^3/uL (1.4-6.5); Hematocrit 43.9 % (39.0-52.0); Hemoglobin 14.9 g/dL (13.0-18.0); Mean Corp Hgb Conc. 33.9 g/dL (33.0-37.0); Mean Corpuscular Hgb 29.7 pg (27.0-31.0); Mean Corpuscular Volume 87.5 fL (80.0-94.0); Mean Platelet Volume 10.5 fL (7.4-10.4); Nucleated Red Blood Cells % 0 % (-); Platelet Count 217 10^3/uL (130-400); Red Blood Cell Count 5.02 10^6/uL (4.70-6.10); Red Cell Dist. Width 13.1 % (11.5-14.5); White Blood Cell Count 6.4 10^3/uL (4.8-10.8)
[2024-04-12 13:28] LABS: ALT (SGPT) 27 U/L (0-50); AST (SGOT) 25 U/L (17-59); Albumin 4.2 g/dl (3.5-5.0); Alkaline Phosphatase 67 U/L (38-126); Blood Urea Nitrogen 22 mg/dl (9-20); Calcium 9.5 mg/dl (8.4-10.2); Carbon Dioxide 29 mmol/L (22-30); Chloride 104 mmol/L (98-107); Glucose 84 mg/dl (70-99); Potassium 4.8 mmol/L (3.5-5.1); Sodium 140 mmol/L (135-145); Total Bilirubin 0.5 mg/dl (0.2-1.3); Total Protein 6.9 g/dl (6.3-8.2); eGFR > 60.00
[2024-04-12 13:39] LABS: NT-proBNP 226 pg/ml; Troponin I < 0.012 ng/ml
[2024-04-12 15:32] VITALS: BMI 36.2
[2024-04-12 15:34] VITALS: BP 164/104
--- NOTE | 2024-04-12 15:34 | ED.GENMED ---
History of Present Illness
General
Chief Complaint: Chest Pain
Time Seen by Provider: 04/12/24 15:34
History of Present Illness
History of Present Illness:
TIME OF INITIAL ENCOUNTER: 3:40 PM
HPI:
Patient presents due to concerns for high blood pressure readings at home. There is also some degree of chest discomfort and shortness of breath. Here due to concerns for high BP at home. Had been on Labetalol 300mg tid in past, and no longer on
Losartan nor Procardia. Took his Labetalol 150mg tid in am and another dose at 11am, Took his Clonidine 0.2mg tid in am and at 11am, and took the Spironolactone 25mg that you recently started this am as well. He had some intermittent vague CP and
SOB past few days. Labs normal. Initial BP in triage 127/82 at 1247, now BP 160s/110s at 1540.
EXAM:
GENERAL: Well appearing in no distress, upon arrival, initial blood pressure 127/82
HEENT: Moist oral mucosa
CARDIOVASCULAR: No murmurs, normal heart rate, regular rhythm, No chest wall tenderness
PULMONARY: No respiratory distress, breath sounds are clear and equal
ABDOMEN: Soft with no peritoneal signs, no tenderness
NEUROLOGIC: Excellent strength all extremities, no coordination deficits
PSYCHIATRIC: Appropriate mental status, normal insight and judgement
EXTREMITIES: Nontender, no edema, moves all extremities equally
SKIN: No rash, no lesions
NUMBER AND COMPLEXITY OF PROBLEMS ADDRESSED AT THE ENCOUNTER
� Chronic conditions affecting care: High blood pressure, former heroin user
� Acute Exacerbation and/or Progression of Chronic Illness: This is an acute problem
� Differential Diagnosis includes: Hypertensive urgency, doubt medication noncompliance, renal artery stenosis
AMOUNT AND/OR COMPLEXITY OF DATA TO BE REVIEWED AND ANALYZED
� I performed an independent evaluation of and my interpretation is:
EKG: Sinus 57, left axis deviation, nonspecific ST abnormality
CT:
X-rays:
Laboratory Studies: CBC chemistries, BNP and troponin are all unremarkable
Other:
� Review of other/old records: I reviewed the records when patient was here 2 months ago related to high blood pressure concerns
� Clinical information was obtained by an independent historian: None needed
� Prescriptions/Medications Considered but not given:
� Further testing considered but not performed:
RISK OF COMPLICATIONS AND/OR MORBIDITY OR MORTALITY OF PATIENT MANAGEMENT
� Social determinants of health affecting care: Lives at home
� Discussion with other providers: I discussed case with Dr. Montgomery�he recommends increasing labetalol to 200 mg 3 times a day and increasing the spironolactone to 25 mg twice a day
� Escalation of care including admission/observation vs risk of discharge considered: The patient was seen by Dr. Montgomery in the emergency department. The patient's chest discomfort and shortness of breath were very vague and
intermittent in nature over the last several days. He currently has no discomfort. EKG and troponin relatively unremarkable. Low BNP.
ANY OTHER UPDATES:
Past History
Past History
ED Past Medical History: HTN and Other (Hepatitis C)
ED Past Surgical History: Other (Surgical resection of adrenal tumor)
Social History
Drug: Former user
Personal:
Phy Exam
Physical Exam
Physical Exam:
See HPI
Scores
Heart Score for Chest Pain Patients
STEMI patient?: Not applicable
Course
Orders/Labs/Results
Orders:
Orders
04/12/24 12:46
Electrocardiogram (*1) Urgent
Reason for Study: Chest Pain
EKG- Treatment ONCE
04/12/24 13:02
BNP [NT-proBNP] Urgent
Complete Blood Count/With Diff Urgent
Comprehensive Metabolic Panel Urgent
Troponin I Urgent
Abnormal Lab Results
04/12/24
13:02
MPV 10.5 H fL
(7.4-10.4)
BUN 22 H mg/dl
(9)
04/12/24 13:02
04/12/24 13:02
Vital Signs
Initial and Last Documented VS:
Initial Vital Signs
Temp Pulse Resp BP Pulse Ox
36.7 C 65 20 127/82 99
04/12/24 12:47 04/12/24 12:47 04/12/24 12:47 04/12/24 12:47 04/12/24 12:47
Last Documented Vital Signs
Temp Pulse Resp BP Pulse Ox
36.7 C 65 20 127/82 99
04/12/24 12:47 04/12/24 12:47 04/12/24 12:47 04/12/24 12:47 04/12/24 15:40
*Critical Care Note
Total Time (30-74mins, 75-104mins- exclusive of procedures): Not Applicable
ED Attending Note
-
Portions of this chart may have been created with voice recognition software.� Occasional wrong word or��sound alike� substitutions may have occurred due to the inherent limitations of voice recognition software.
Discharge Plan
Departure
Patient Disposition: Home (Routine Discharge)
Date of Disposition: 04/12/24
Time of Disposition: 16:10
Patient with high blood pressure during this ER visit?: Yes
Discharge Problem:
Poor high blood pressure control
Instructions: BLOOD PRESSURE
Prescriptions:
New
spironolactone 25 mg tablet
25 mg PO BID Qty: 60 0RF
No Action
atorvastatin 40 mg Tablet
40 mg PO QPM Qty: 30 2RF
clonidine HCl 0.2 mg Tablet
0.2 mg PO BID Qty: 60 2RF
aspirin 81 mg Tablet,Chewable
81 mg PO DAILY Qty: 30 0RF
spironolactone 25 mg Tablet
25 mg PO DAILY
labetalol 100 mg Tablet
150 mg PO TID
Referrals:
Diodato,Jean Carlos V., DO [Active] - Follow up in 10 days
Kimberly Story NP [Family Provider] -
Activity Restrictions/Additional Instructions:
Dr. Montgomery recommends that you increase the labetalol to 200 mg 3 times a day. He also recommends that you increase the spironolactone to 25 mg twice a day. Continue your other medication as well.
Interventions
Interventions:
*General Assessment Last Done: 04/12/24 12:47
*ED COVID-19 Vaccine History Last Done: 04/12/24 15:40
ED- Cardiac Assessment Last Done: 04/12/24 15:40
Discharge Date and Time
Print Language: AUSTRALIAN
[2024-04-12 15:35] VITALS: BP 161/113
[2024-04-12 16:29] VITALS: BP 165/91
== END 2024-04-12 16:39 | disposition home or self-care (01) ==
LOC: EMR 12:45
PROVIDERS: Emergency Medicine; EMERGENCY PHYSICIAN Emergency Medicine; FAMILY PHYSICIAN Nurse Practitioner Family
DX: I10 Essential (primary) hypertension (principal); R07.89 Other chest pain; R06.02 Shortness of breath; Z86.19 Personal history of other infectious and parasitic diseases
CPT/HCPCS: 99284; 71046; 80053; 83880; 84484; 85025; 93005